=== PATIENT | female | born 1975 | race Caucasian/White ===

== ENCOUNTER 2016-05-01 15:05 | Observation (INO) | payer MEDICAID ==
[2016-05-01] MEDS ORDERED: Sodium Chloride 0.9% 10 ML Syringe FLUSH PRN (15:23)
[2016-05-01] MEDS: Sodium Chloride 0.9% 1,000 ML IV SCH ×2 (16:00→23:02)
--- NOTE | 2016-05-01 16:07 | CR ---
INDICATION: Fever. CHEST: PA and lateral views of the chest 05/01/2016 were compared with 2014 and 10/25/2014, revealing no significant interval change - no definite active disease. The heart is emphasized by relatively poor inspiration. Mediastinum and bony thorax were otherwise unremarkable. An active infiltrate or effusion was not seen. IMPRESSION: Essentially stable chest. No definite active disease. MTDD
--- NOTE | 2016-05-01 18:07 | PCM.HP ---
H&P History of Present Illness - General Date of Service: 05/01/16 Admit Problem/Dx: Admission Diagnosis/Problem Admission Diagnosis/Problem Weakness Source of Information: Patient History Limitations: Reports: No limitations - History of Present Illness Initial Comments - Free Text/Narative: This is a patient referred by Dr. King. She is a 40-year-old female patient with a history of MS. She has had two-week history of fevers off and on. She says it started with temperature over 102 but since then it has been high 90s. She's had diarrhea the last couple days and MS better. She denies nasal congestion, sore throat, cough, exposures. She does self catheter. She denies dysuria, pyuria, hematuria, cough. She's a decreased appetite and not eating well. Dr. King felt she should be admitted for observation. Generalized Pain Score (Numeric/FACES): 7 - Related Data Allergies/Adverse Reactions: Allergies Allergy/AdvReac Type Severity Reaction Status Date / Time diazepam Allergy Nausea Verified 05/01/16 17:48 gadopentetate dimeglumine Allergy Shortness Verified 05/01/16 17:48 [From Magnevist] of Breath lorazepam Allergy Numbness Verified 05/01/16 17:48 dye Allergy heart Uncoded 05/01/16 17:48 races, feel like cant breathe IV CONTRAST Allergy Chest Uncoded 05/01/16 17:48 Tightness MRI CONTRAST Allergy Chest Uncoded 05/01/16 17:48 Tightness peppers Allergy Hives Uncoded 05/01/16 17:48 Home Medications: Home Meds Acetaminophen [Pain Reliever] 500 mg PO Q4H PRN 05/21/13 [History] Divalproex Sodium [Depakote ER] 1,000 mg PO BEDTIME 05/21/13 [History] Acetaminophen with Codeine [Acetaminophen-Cod #3] 1 - 2 tab PO Q4H PRN 10/09/14 [History] Furosemide [Lasix] 40 mg PO DAILY 10/09/14 [History] rOPINIRole HCl [Requip] 1 mg PO BEDTIME 10/09/14 [History] Cephalexin [Keflex] 250 mg PO BEDTIME 11/25/14 [History] Eletriptan HBr [Relpax] 40 mg PO DAILY PRN 11/28/15 [History] FLUoxetine HCl [Fluoxetine HCl] 20 mg PO DAILY 11/28/15 [History] Levothyroxine Sodium [Levothyroxine Sodium] 88 mcg PO DAILY 11/28/15 [History] Mirtazapine [Remeron] 30 mg PO BEDTIME 11/28/15 [History] Sennosides/Docusate Sodium [Senna-Docusate Sodium Tablet] 2 tab PO BEDTIME 11/27 [History] Dextroamphetamine/Amphetamine [Adderall 20 mg Tablet] 20 mg PO BID 05/01/16 [ History] Gemfibrozil [Lopid] 600 mg PO BID 05/01/16 [History] Morphine Sulfate [Morphine Sulfate ER] 100 mg PO BID 05/01/16 [History] Propranolol [Inderal LA] 180 mg PO BEDTIME 05/01/16 [History] Psyllium [Metamucil] 2 tab PO BID 05/01/16 [History] methylPREDNISolone [Medrol] 4 mg PO DAILY 05/01/16 [History] Past Medical History Cardiovascular History: Reports: High cholesterol Respiratory History: Reports: Pneumonia, recurrent Gastrointestinal History: Reports: Cholelithiasis Genitourinary History: Reports: Other (see below) Other Genitourinary History: bladder botox for leakage [employer] History: Reports: Endometriosis, Other (see below) Other OB/BYN History: ovarian cysts Musculoskeletal History: Reports: Back pain, chronic, Fibromyalgia, Other (see below) Other Musculoskeletal History: multiple sclerosis, degenerative disk disease Neurological History: Reports: Migraines, MS, Vertigo Psychiatric History: Reports: Anxiety, Depression, PTSD, Other (see below) Other Psychiatric History: hyper awareness disorder Endocrine/Metabolic History: Reports: Hypothyroidism, Obesity/BMI 30+ Dermatologic History: Reports: Other (see below) Other Dermatologic History: pigment discoloeration l shoulder - Past Surgical History HEENT Surgical History: Reports: Tonsillectomy GI Surgical History: Reports: Appendectomy, Cholecystectomy, Colonoscopy, EGD Female Surgical History: Reports: Hysterectomy Musculoskeletal Surgical History: Reports: Carpal tunnel Social & Family History - Tobacco Use Smoking Status *Q: Current Every Day Smoker Years of Tobacco use: 20 Packs/Tins Daily: 0.2 Used Tobacco, but Quit: Yes Month Tobacco Last Used: June Second Hand Smoke Exposure: No - Caffeine Use Caffeine Use: Reports: Soda - Alcohol Use Days Per Week of Alcohol Use: 0 Number of Drinks Per Day: 1 Total Drinks Per Week: 0 - Recreational Drug Use Recreational Drug Use: No - Living Situation & Occupation Living situation: Reports: Occupation: disabled H&P Review of Systems - Review of Systems: Review Of Systems: See Below General: Reports: fever, chills, malaise, weakness HEENT: Reports: no symptoms Pulmonary: Reports: no symptoms Cardiovascular: Reports: no symptoms Gastrointestinal: Reports: Diarrhea, Nausea. Denies: Abdominal pain, Bloody stool Genitourinary: Reports: no symptoms Musculoskeletal: Reports: no symptoms Skin: Reports: no symptoms Psychiatric: Reports: no symptoms Neurological: Reports: no symptoms Hematologic/Lymphatic: Reports: no symptoms Immunologic: Reports: no symptoms Exam - Exam Exam: See Below - Vital Signs Vital Signs: Last Vital Signs Temp 98.0 F 05/01/16 15:05 Pulse 61 05/01/16 15:05 Resp 18 05/01/16 15:05 BP 119/68 05/01/16 15:05 Pulse Ox 95 05/01/16 15:05 Weight: 191 lb 14.4 oz - Patient Data Lab Results last 24 hrs: Laboratory Results - last 24 hr 05/01/16 05/01/16 Range/Units 16:00 16:00 WBC 13.0 H (4.5-12.0) X10-3/uL RBC 4.88 (3.23-5.20) x10(6)uL Hgb 12.5 (11.5-15.5) g/dL Hct 43.8 (30.0-51.3) % MCV 89.8 (80-96) fL MCH 25.5 L (27.7-33.6) pg MCHC 28.5 L (32.2-35.4) g/dL RDW 12.4 (11.5-15.5) % Plt Count 304 (125-369) X10(3)uL MPV 9.3 (7.4-10.4) fL Neut % (Auto) 63.6 (46-82) % Lymph % (Auto) 28.5 (13-37) % [place] % (Auto) 6.7 (4-12) % Eos % (Auto) 1 (1.0-5.0) % Baso % (Auto) 0 (0-2) % Neut # 8.2 (1.6-8.3) # Lymph # 3.7 (0.6-5.0) # [place] # 0.9 (0.0-1.3) # Eos # 0.1 (0.0-0.8) # Baso # 0.1 (0.0-0.2) # Sodium 139 (135-145) mmol/L Potassium 3.5 (3.5-5.3) mmol/L Chloride 101 D (100-110) mmol/L Carbon Dioxide 29 (23-29) mmol/L BUN 18 D (5-20) mg/dL Creatinine 0.8 (0.6-1.3) mg/dL Est Cr Clr Drug Dosing 82.33 mL/min Estimated GFR (MDRD) > 60 (>60) BUN/Creatinine Ratio 22.5 H (9-20) Glucose 89 (80-116) mg/dL Calcium 9.1 (8.6-10.2) mg/dL Total Bilirubin 0.8 (0.1-1.3) mg/dL AST 26 D (5-27) IU/L ALT 31 H D (14-26) IU/L Alkaline Phosphatase 73 (56-112) IU/L Total Protein 7.8 (6.0-8.0) g/dL Albumin 4.6 (3.5-5.2) g/dL Globulin 3.2 g/dL Albumin/Globulin Ratio 1.4 Result Diagrams: 05/01/16 16:00 05/01/16 16:00 *Q Meaningful Use (ADM) - VTE *Q VTE Criteria *Q: - Stroke *Q Stroke Criteria *Q: - AMI *Q AMI Criteria *Q: - Problem List (1) Fever SNOMED Code(s): 987803024 ICD Code: R50.9 - FEVER, UNSPECIFIED Status: Acute Current Visit: Yes (2) Dehydration SNOMED Code(s): 69369877 ICD Code: E86.0 - DEHYDRATION Status: Acute Priority: Medium Current Visit: No Onset Date: 04/27/14 Problem Details: IV fluids (3) Diarrhea SNOMED Code(s): 24110382 ICD Code: R19.7 - DIARRHEA, UNSPECIFIED Status: Acute Current Visit: No Problem List Initiated/Reviewed/Updated: Yes Orders Last 24hrs: Active Orders 24 hr Category Date Time Status Admission Status [Patient Status] [ADT] Routine ADT 05/01/16 15:00 Active Patient Status [ADT] Routine ADT 05/01/16 15:23 Active Height and Weight [RC] 06 Care 05/01/16 15:23 Active Intake and Output [RC] 06,14,22 Care 05/01/16 15:24 Active May Shower [RC] ASDIRECTED Care 05/01/16 15:23 Active Oxygen Therapy [RC] PRN Care 05/01/16 15:23 Active Up ad Marybel [RC] ASDIRECTED Care 05/01/16 15:23 Active Vital Signs [RC] Q4H Care 05/01/16 15:23 Active Regular Diet [DIET] Diet 05/01/16 Dinner Active CULTURE BLOOD [BC] Urgent Lab 05/01/16 16:00 Received CULTURE BLOOD [BC] Urgent Lab 05/01/16 16:05 Received INFLUENZA A+B AG SCREEN [RM] Routine Lab 05/01/16 17:23 Uncollected UA W/O MICROSCOPIC [URIN] Routine Lab 05/01/16 15:23 Uncollected Ondansetron [Zofran ODT] Med 05/01/16 15:23 Active 4 mg PO Q4H PRN Sodium Chloride 0.9% [Normal Saline] 1,000 ml Med 05/01/16 15:30 Active IV ASDIRECTED Sodium Chloride 0.9% [Saline Flush] Med 05/01/16 15:23 Active 10 ml FLUSH ASDIRECTED PRN Blood Culture x2 Reflex Set [OM.PC] Urgent Oth 05/01/16 15:23 Ordered Peripheral IV Insertion Adult [OM.PC] Routine Oth 05/01/16 15:23 Ordered Resuscitation Status Routine Resus Stat 05/01/16 15:23 Ordered Medication Orders Sodium Chloride (Normal Saline) 1,000 mls @ 150 mls/hr IV ASDIRECTED ECHO Last Admin: 05/01/16 16:00 Dose: 150 mls/hr Ondansetron HCl (Zofran Odt) 4 mg PO Q4H PRN PRN Reason: nausea, able to take PO Sodium Chloride (Saline Flush) 10 ml FLUSH ASDIRECTED PRN PRN Reason: Keep Vein Open Last Admin: 05/01/16 16:00 Dose: 10 ml Assessment/Plan Comment:: 1. Admit for observation. 2. Chest x-ray, influenza screen, UA, CBC, Chem-12, blood cultures. 3. IV fluids at a rate of 150 mL an hour of normal saline. 4. Up ad marybel. regular diet.
[2016-05-01] MEDS: Ondansetron 4 MG Tab.DIS PO PRN (18:52)
[2016-05-01] MEDS ORDERED: Acetaminophen 500 MG Tab PO PRN (19:38)
[2016-05-01] MEDS ORDERED: Acetaminophen/Codeine 300-30 MG Tab PO PRN (19:38)
[2016-05-01] MEDS ORDERED: ELETRIPTAN HBR 40 MG PO PRN (19:38)
[2016-05-01] MEDS ORDERED: rOPINIRole 1 MG Tab PO SCH (21:00)
[2016-05-01] MEDS ORDERED: Propranolol 60 MG Cap.ER PO SCH (21:00)
[2016-05-01] MEDS ORDERED: Cephalexin 250 MG Cap PO SCH (21:00)
[2016-05-01] MEDS ORDERED: Divalproex Sodium 500 MG Tab.ER PO SCH (21:00)
[2016-05-01] MEDS ORDERED: Mirtazapine 30 MG Tab PO SCH (21:00)
[2016-05-01] MEDS: Gemfibrozil 600 MG Tab PO SCH (21:55)
[2016-05-01] MEDS: MORPHINE 100 MG PO SCH (21:55)
[2016-05-01] MEDS: Psyllium 0.52 GM Cap PO SCH (21:56)
[2016-05-02] MEDS: Sodium Chloride 0.9% 1,000 ML IV SCH ×2 (05:45→10:23)
[2016-05-02] MEDS ORDERED: Levothyroxine 100 MCG Tab PO SCH (07:30)
[2016-05-02] MEDS ORDERED: Levothyroxine 88 MCG Tab PO SCH ×2 (07:37→09:15)
--- NOTE | 2016-05-02 08:36 | PCM.PN ---
- General Info Date of Service: 05/02/16 Admission Dx/Problem (Free Text): Patient states she feels a little nauseated after she is. She was having diarrhea but now has not had a BM for a few days. She has no abdominal pain, nasal congestion, cough. She states she feels warm and cold at times. No myalgias. She has not urinated today. - Patient Data Vitals - most recent: Last Vital Signs Temp 97.8 F 05/02/16 08:00 Pulse 62 05/02/16 08:00 Resp 16 05/02/16 08:00 BP 108/59 L 05/02/16 08:00 Pulse Ox 94 L 05/02/16 08:00 Weight - most recent: 193 lb I&O - last 24 hours: Intake & Output 05/01/16 05/02/16 05/02/16 22:59 06:59 14:59 Intake Total 1166 1191 Output Total 800 0 Balance 366 1191 Lab Results last 24 hrs: Laboratory Results - last 24 hr 05/01/16 05/01/16 05/01/16 Range/Units 16:00 16:00 18:00 WBC 13.0 H (4.5-12.0) X10-3/uL RBC 4.88 (3.23-5.20) x10(6)uL Hgb 12.5 (11.5-15.5) g/dL Hct 43.8 (30.0-51.3) % MCV 89.8 (80-96) fL MCH 25.5 L (27.7-33.6) pg MCHC 28.5 L (32.2-35.4) g/dL RDW 12.4 (11.5-15.5) % Plt Count 304 (125-369) X10(3)uL MPV 9.3 (7.4-10.4) fL Neut % (Auto) 63.6 (46-82) % Lymph % (Auto) 28.5 (13-37) % [place] % (Auto) 6.7 (4-12) % Eos % (Auto) 1 (1.0-5.0) % Baso % (Auto) 0 (0-2) % Neut # 8.2 (1.6-8.3) # Lymph # 3.7 (0.6-5.0) # [place] # 0.9 (0.0-1.3) # Eos # 0.1 (0.0-0.8) # Baso # 0.1 (0.0-0.2) # Sodium 139 (135-145) mmol/L Potassium 3.5 (3.5-5.3) mmol/L Chloride 101 D (100-110) mmol/L Carbon Dioxide 29 (23-29) mmol/L BUN 18 D (5-20) mg/dL Creatinine 0.8 (0.6-1.3) mg/dL Est Cr Clr Drug Dosing 82.33 mL/min Estimated GFR (MDRD) > 60 (>60) BUN/Creatinine Ratio 22.5 H (9-20) Glucose 89 (80-116) mg/dL Calcium 9.1 (8.6-10.2) mg/dL Total Bilirubin 0.8 (0.1-1.3) mg/dL AST 26 D (5-27) IU/L ALT 31 H D (14-26) IU/L Alkaline Phosphatase 73 (56-112) IU/L Total Protein 7.8 (6.0-8.0) g/dL Albumin 4.6 (3.5-5.2) g/dL Globulin 3.2 g/dL Albumin/Globulin Ratio 1.4 Urine Color Yellow (YELLOW) Urine Appearance Clear (CLEAR) Urine pH 5.0 (5.0-6.5) Ur Specific [place] 1.015 (1.010-1.025) Urine Protein Negative (NEGATIVE) mg/dL Urine Glucose (UA) Normal (NEGATIVE) mg/dL Urine Ketones Negative (NEGATIVE) mg/dL Urine Occult Blood Negative (NEGATIVE) Urine Nitrite Negative (NEGATIVE) Urine Bilirubin Negative (NEGATIVE) Urine Urobilinogen Normal (NEGATIVE) mg/dL Ur Leukocyte Esterase Negative (NEGATIVE) Patric Results last 24 hrs: Microbiology 05/01/16 18:00 Influenza Type A Antigen Screen - Final Nasopharyngeal Swab - Nare, Right NEGATIVE INFLUENZA A VIRUS AG Influenza Type B Antigen Screen - Final NEGATIVE INFLUENZA B VIRUS AG Med Orders - Current: Current Medications Acetaminophen (Tylenol Extra Strength) 500 mg PO Q4H PRN PRN Reason: Pain Acetaminophen/Codeine Phosphate (Tylenol With Codeine No.3 300mg/30mg) 1 - 2 tab PO Q4H PRN PRN Reason: BACK PAIN Last Admin: 05/02/16 07:55 Dose: 2 tab Cephalexin (Keflex) 250 mg PO BEDTIME [facility] Last Admin: 05/01/16 21:55 Dose: 250 mg Divalproex Sodium (Depakote Er) 1,000 mg PO BEDTIME [facility] Last Admin: 05/01/16 21:56 Dose: 1,000 mg Fluoxetine HCl (Prozac) 20 mg PO DAILY [facility] Gemfibrozil (Lopid) 600 mg PO BID [facility] Last Admin: 05/01/16 21:55 Dose: 600 mg Sodium Chloride (Normal Saline) 1,000 mls @ 150 mls/hr IV ASDIRECTED [facility] Last Admin: 05/02/16 05:45 Dose: 150 mls/hr Levothyroxine Sodium (Synthroid) 88 mcg PO ACBREAKFAST [facility] Methylprednisolone (Medrol) 4 mg PO DAILY [facility] PRN Reason: Protocol Stop: 05/02/16 10:00 Morphine Sulfate (Ms Contin) 100 mg PO BID [facility] Last Admin: 05/01/16 21:55 Dose: 100 mg Non-Formulary Medication (Dextroamphetamine/Amphetamine [Adderall 20 Mg Tablet] ) 20 mg PO BID [facility] Last Admin: 05/01/16 22:09 Dose: Not Given Non-Formulary Medication (Eletriptan Hbr [Relpax]) 40 mg PO DAILY PRN PRN Reason: Headache Ondansetron HCl (Zofran Odt) 4 mg PO Q4H PRN PRN Reason: nausea, able to take PO Last Admin: 05/01/16 18:52 Dose: 4 mg Propranolol HCl (Inderal La) 180 mg PO BEDTIME [facility] Last Admin: 05/01/16 21:55 Dose: 180 mg Psyllium Hydrophilic Mucilloid (Metamucil) 1.04 gm PO BID [facility] Last Admin: 05/01/16 21:56 Dose: 1.04 gm Ropinirole HCl (Requip) 1 mg PO BEDTIME [facility] Last Admin: 05/01/16 21:55 Dose: 1 mg Senna/Docusate Sodium (Senna Plus) 2 tab PO BEDTIME [facility] Last Admin: 05/01/16 21:55 Dose: 2 tab Sodium Chloride (Saline Flush) 10 ml FLUSH ASDIRECTED PRN PRN Reason: Keep Vein Open Last Admin: 05/01/16 16:00 Dose: 10 ml Discontinued Medications Levothyroxine Sodium (Synthroid) 88 mcg PO ACBREAKFAST ECHO Mirtazapine (Remeron) 30 mg PO BEDTIME ECHO - Exam General: alert, oriented, cooperative Neck: supple Lungs: Clear to auscultation, Normal respiratory effort. No: Crackles, Rales, Rhonchi Cardiovascular: regular rate, regular rhythm. No: no murmurs Extremities: no edema - Problem List & Annotations (1) Dehydration SNOMED Code(s): 30908956 Code(s): E86.0 - DEHYDRATION Status: Acute Priority: Medium Current Visit: No Onset Date: 04/27/14 Annotation/Comment:: IV fluids (2) Gastroenteritis SNOMED Code(s): 36802853 Code(s): K52.9 - NONINFECTIVE GASTROENTERITIS AND COLITIS, UNSPECIFIED Status: Acute Current Visit: No - Problem List Review Problem List Initiated/Reviewed/Updated: Yes - My Orders Last 24 Hours: My Active Orders 05/01/16 15:00 Admission Status [Patient Status] [ADT] Routine 05/01/16 15:23 Patient Status [ADT] Routine Height and Weight [RC] 06 July Shower [RC] ASDIRECTED Oxygen Therapy [RC] PRN Up ad Marybel [RC] ASDIRECTED Vital Signs [RC] Q4H Ondansetron [Zofran ODT] 4 mg PO Q4H PRN Sodium Chloride 0.9% [Saline Flush] 10 ml FLUSH ASDIRECTED PRN Blood Culture x2 Reflex Set [OM.PC] Urgent Peripheral IV Insertion Adult [OM.PC] Routine Resuscitation Status Routine 05/01/16 15:24 Intake and Output [RC] 06,14,22 05/01/16 15:30 Sodium Chloride 0.9% [Normal Saline] 1,000 ml IV ASDIRECTED 05/01/16 16:00 CULTURE BLOOD [BC] Urgent 05/01/16 16:05 CULTURE BLOOD [BC] Urgent 05/01/16 19:38 Acetaminophen [Tylenol Extra Strength] 500 mg PO Q4H PRN Acetaminophen/Codeine [Tylenol with Codeine No.3 300MG/30MG] 1 - 2 tab PO Q4H PRN Eletriptan HBr [Relpax] 40 mg PO DAILY PRN 05/01/16 21:00 Cephalexin [Keflex] 250 mg PO BEDTIME Dextroamphetamine/Amphetamine [Adderall 20 mg Tablet] 20 mg PO BID Divalproex Sodium [Depakote ER] 1,000 mg PO BEDTIME Docusate Sodium/Sennosides [Senna Plus] 2 tab PO BEDTIME Gemfibrozil [Lopid] 600 mg PO BID Morphine [MS Contin] 100 mg PO BID Propranolol [Inderal LA] 180 mg PO BEDTIME Psyllium [Metamucil] 1.04 gm PO BID rOPINIRole [Requip] 1 mg PO BEDTIME 05/01/16 Dinner Regular Diet [DIET] 05/02/16 07:16 CBC WITH AUTO DIFF [HEME] Routine 05/02/16 07:37 Levothyroxine [Synthroid] 88 mcg PO ACBREAKFAST 05/02/16 09:00 FLUoxetine [PROzac] 20 mg PO DAILY methylPREDNISolone [Medrol] 4 mg PO DAILY - Plan Plan:: 1. gave a bolus of fluids stay. 2. Patient had a C-reactive protein, sedimentation rate and blood cultures in the clinic recently that were negative. 3. Influenza, UA, chem 10 all negative. White count is slightly elevated. 4. Repeat CBC this morning. 5. Bolus of 500 mL normal saline and then continue at 150 mL an hour.
[2016-05-02] MEDS ORDERED: FLUoxetine 20 MG Cap PO SCH (09:00)
[2016-05-02] MEDS ORDERED: methylPREDNISolone 4 MG Tab 21 Tab/Dosepak PO SCH (09:00)
[2016-05-02] MEDS: Gemfibrozil 600 MG Tab PO SCH (09:14)
[2016-05-02] MEDS: Psyllium 0.52 GM Cap PO SCH (09:14)
[2016-05-02] MEDS: MORPHINE 100 MG PO SCH (09:19)
[2016-05-02] MEDS: Ondansetron 4 MG Tab.DIS PO PRN (09:20)
[2016-05-02 12:03] VITALS: BP 102/49
--- NOTE | 2016-05-02 13:54 | PCM.DCSUM1 ---
Discharge Summary - Hospital Course Free Text/Narrative:: Hospital course-patient was admitted. Initial CBC showed a white count of over 13. Chem-12, UA, influenza, negative. Blood cultures pending. Patient was hydrated overnight with normal saline. The next morning patient states she felt warm and cold. Her temperature remained afebrile. Give her a bolus of fluids in the morning again if she had not urinated. After that her nausea that she been having disappeared. She still hasn't had a bowel movement since yesterday. Brief History: This is a patient referred by Dr. King. She is a 40-year- old female patient with a history of MS. She has had two-week history of fevers off and on. She says it started with temperature over 102 but since then it has been high 90s. She's had lots of diarrhea the last couple days and MS better. She denies nasal congestion, sore throat, cough, exposures. She does self catheter. She denies dysuria, pyuria, hematuria, cough. She's a decreased appetite and not eating well. Dr. King felt she should be admitted for observation. - Discharge Data Discharge Date: 05/02/16 Discharge Disposition: Home, Self-Care 01 Condition: Good - Discharge Diagnosis/Problem(s) (1) Dehydration SNOMED Code(s): 85325770 ICD Code: E86.0 - DEHYDRATION Status: Acute Priority: Medium Current Visit: Yes Onset Date: 04/27/14 Problem Details: IV fluids (2) Gastroenteritis SNOMED Code(s): 10650687 ICD Code: K52.9 - NONINFECTIVE GASTROENTERITIS AND COLITIS, UNSPECIFIED Status: Acute Current Visit: Yes - Patient Summary/Data Operative Procedure(s) Performed: c scope with bx - Patient Instructions Diet: Regular Diet as Tolerated Activity: As Tolerated Driving: May Drive Today Showering/Bathing: May Shower Other/Special Instructions: 1. Recheck with Dr. King 7-10 days. - Discharge Plan Home Medications: Home Meds Acetaminophen [Pain Reliever] 500 mg PO Q4H PRN 05/21/13 [History] Divalproex Sodium [Depakote ER] 1,000 mg PO BEDTIME 05/21/13 [History] Acetaminophen with Codeine [Acetaminophen-Cod #3] 1 - 2 tab PO Q4H PRN 10/09/14 [History] rOPINIRole HCl [Requip] 1 mg PO BEDTIME 10/09/14 [History] Cephalexin [Keflex] 250 mg PO BEDTIME 11/25/14 [History] Eletriptan HBr [Relpax] 40 mg PO DAILY PRN 11/28/15 [History] FLUoxetine HCl [Fluoxetine HCl] 20 mg PO DAILY 11/28/15 [History] Levothyroxine Sodium 88 mcg PO DAILY 11/28/15 [History] Mirtazapine [Remeron] 30 mg PO BEDTIME 11/28/15 [History] Sennosides/Docusate Sodium [Senna-Docusate Sodium Tablet] 2 tab PO BEDTIME 11/27 [History] Dextroamphetamine/Amphetamine [Adderall 20 mg Tablet] 20 mg PO BID 05/01/16 [ History] Gemfibrozil [Lopid] 600 mg PO BID 05/01/16 [History] Morphine Sulfate [Morphine Sulfate ER] 100 mg PO BID 05/01/16 [History] Propranolol [Inderal LA] 180 mg PO BEDTIME 05/01/16 [History] Psyllium [Metamucil] 2 tab PO BID 05/01/16 [History] methylPREDNISolone [Medrol] 4 mg PO DAILY 05/01/16 [History] - Discharge Summary/Plan Comment DC Time >30 min.: No - Patient Data Vitals - Most Recent: Last Vital Signs Temp 98.1 F 05/02/16 12:00 Pulse 65 05/02/16 12:00 Resp 16 05/02/16 12:00 BP 102/49 L 05/02/16 12:00 Pulse Ox 95 05/02/16 12:00 Weight - Most Recent: 193 lb I&O - Last 24 hours: Intake & Output 05/01/16 05/02/16 05/02/16 22:59 06:59 14:59 Intake Total 1166 1191 360 Output Total 800 0 300 Balance 366 1191 60 Lab Results - Last 24 hrs: Laboratory Results - last 24 hr 05/01/16 05/01/16 05/01/16 Range/Units 16:00 16:00 18:00 WBC 13.0 H (4.5-12.0) X10-3/uL RBC 4.88 (3.23-5.20) x10(6)uL Hgb 12.5 (11.5-15.5) g/dL Hct 43.8 (30.0-51.3) % MCV 89.8 (80-96) fL MCH 25.5 L (27.7-33.6) pg MCHC 28.5 L (32.2-35.4) g/dL RDW 12.4 (11.5-15.5) % Plt Count 304 (125-369) X10(3)uL MPV 9.3 (7.4-10.4) fL Neut % (Auto) 63.6 (46-82) % Lymph % (Auto) 28.5 (13-37) % [place] % (Auto) 6.7 (4-12) % Eos % (Auto) 1 (1.0-5.0) % Baso % (Auto) 0 (0-2) % Neut # 8.2 (1.6-8.3) # Lymph # 3.7 (0.6-5.0) # [place] # 0.9 (0.0-1.3) # Eos # 0.1 (0.0-0.8) # Baso # 0.1 (0.0-0.2) # Sodium 139 (135-145) mmol/L Potassium 3.5 (3.5-5.3) mmol/L Chloride 101 D (100-110) mmol/L Carbon Dioxide 29 (23-29) mmol/L BUN 18 D (5-20) mg/dL Creatinine 0.8 (0.6-1.3) mg/dL Est Cr Clr Drug Dosing 82.33 mL/min Estimated GFR (MDRD) > 60 (>60) BUN/Creatinine Ratio 22.5 H (9-20) Glucose 89 (80-116) mg/dL Calcium 9.1 (8.6-10.2) mg/dL Total Bilirubin 0.8 (0.1-1.3) mg/dL AST 26 D (5-27) IU/L ALT 31 H D (14-26) IU/L Alkaline Phosphatase 73 (56-112) IU/L Total Protein 7.8 (6.0-8.0) g/dL Albumin 4.6 (3.5-5.2) g/dL Globulin 3.2 g/dL Albumin/Globulin Ratio 1.4 Urine Color Yellow (YELLOW) Urine Appearance Clear (CLEAR) Urine pH 5.0 (5.0-6.5) Ur Specific [place] 1.015 (1.010-1.025) Urine Protein Negative (NEGATIVE) mg/dL Urine Glucose (UA) Normal (NEGATIVE) mg/dL Urine Ketones Negative (NEGATIVE) mg/dL Urine Occult Blood Negative (NEGATIVE) Urine Nitrite Negative (NEGATIVE) Urine Bilirubin Negative (NEGATIVE) Urine Urobilinogen Normal (NEGATIVE) mg/dL Ur Leukocyte Esterase Negative (NEGATIVE) 05/02/16 Range/Units 08:45 WBC 9.7 (4.5-12.0) X10-3/uL RBC 3.90 (3.23-5.20) x10(6)uL Hgb 12.0 (11.5-15.5) g/dL Hct 35.3 (30.0-51.3) % MCV 90.6 (80-96) fL MCH 30.8 (27.7-33.6) pg MCHC 34.0 (32.2-35.4) g/dL RDW 12.5 (11.5-15.5) % Plt Count 234 (125-369) X10(3)uL MPV 8.6 (7.4-10.4) fL Neut % (Auto) 50.3 (46-82) % Lymph % (Auto) 41.2 H (13-37) % [place] % (Auto) 5.8 (4-12) % Eos % (Auto) 2 (1.0-5.0) % Baso % (Auto) 1 (0-2) % Neut # 4.8 (1.6-8.3) # Lymph # 4.0 (0.6-5.0) # [place] # 0.6 (0.0-1.3) # Eos # 0.2 (0.0-0.8) # Baso # 0.1 (0.0-0.2) # Sodium (135-145) mmol/L Potassium (3.5-5.3) mmol/L Chloride (100-110) mmol/L Carbon Dioxide (23-29) mmol/L BUN (5-20) mg/dL Creatinine (0.6-1.3) mg/dL Est Cr Clr Drug Dosing mL/min Estimated GFR (MDRD) (>60) BUN/Creatinine Ratio (9-20) Glucose (80-116) mg/dL Calcium (8.6-10.2) mg/dL Total Bilirubin (0.1-1.3) mg/dL AST (5-27) IU/L ALT (14-26) IU/L Alkaline Phosphatase (56-112) IU/L Total Protein (6.0-8.0) g/dL Albumin (3.5-5.2) g/dL Globulin g/dL Albumin/Globulin Ratio Urine Color (YELLOW) Urine Appearance (CLEAR) Urine pH (5.0-6.5) Ur Specific [place] (1.010-1.025) Urine Protein (NEGATIVE) mg/dL Urine Glucose (UA) (NEGATIVE) mg/dL Urine Ketones (NEGATIVE) mg/dL Urine Occult Blood (NEGATIVE) Urine Nitrite (NEGATIVE) Urine Bilirubin (NEGATIVE) Urine Urobilinogen (NEGATIVE) mg/dL Ur Leukocyte Esterase (NEGATIVE) SHORTY Results - Last 24 hrs: Microbiology 05/01/16 18:00 Influenza Type A Antigen Screen - Final Nasopharyngeal Swab - Nare, Right NEGATIVE INFLUENZA A VIRUS AG Influenza Type B Antigen Screen - Final NEGATIVE INFLUENZA B VIRUS AG Med Orders - Current: Current Medications Acetaminophen (Tylenol Extra Strength) 500 mg PO Q4H PRN PRN Reason: Pain Acetaminophen/Codeine Phosphate (Tylenol With Codeine No.3 300mg/30mg) 1 - 2 tab PO Q4H PRN PRN Reason: BACK PAIN Last Admin: 05/02/16 07:55 Dose: 2 tab Cephalexin (Keflex) 250 mg PO BEDTIME [facility] Last Admin: 05/01/16 21:55 Dose: 250 mg Divalproex Sodium (Depakote Er) 1,000 mg PO BEDTIME [facility] Last Admin: 05/01/16 21:56 Dose: 1,000 mg Fluoxetine HCl (Prozac) 20 mg PO DAILY [facility] Last Admin: 05/02/16 09:14 Dose: 20 mg Gemfibrozil (Lopid) 600 mg PO BID [facility] Last Admin: 05/02/16 09:14 Dose: 600 mg Sodium Chloride (Normal Saline) 1,000 mls @ 150 mls/hr IV ASDIRECTED [facility] Last Admin: 05/02/16 10:23 Dose: 150 mls/hr Levothyroxine Sodium (Synthroid) 88 mcg PO ACBREAKFAST [facility] Last Admin: 05/02/16 09:15 Dose: 88 mcg Morphine Sulfate (Ms Contin) 100 mg PO BID [facility] Last Admin: 05/02/16 09:19 Dose: 100 mg Non-Formulary Medication (Dextroamphetamine/Amphetamine [Adderall 20 Mg Tablet] ) 20 mg PO BID [facility] Last Admin: 05/02/16 09:32 Dose: Not Given Non-Formulary Medication (Eletriptan Hbr [Relpax]) 40 mg PO DAILY PRN PRN Reason: Headache Ondansetron HCl (Zofran Odt) 4 mg PO Q4H PRN PRN Reason: nausea, able to take PO Last Admin: 05/02/16 09:20 Dose: 4 mg Propranolol HCl (Inderal La) 180 mg PO BEDTIME [facility] Last Admin: 05/01/16 21:55 Dose: 180 mg Psyllium Hydrophilic Mucilloid (Metamucil) 1.04 gm PO BID [facility] Last Admin: 05/02/16 09:14 Dose: 1.04 gm Ropinirole HCl (Requip) 1 mg PO BEDTIME [facility] Last Admin: 05/01/16 21:55 Dose: 1 mg Senna/Docusate Sodium (Senna Plus) 2 tab PO BEDTIME [facility] Last Admin: 05/01/16 21:55 Dose: 2 tab Sodium Chloride (Saline Flush) 10 ml FLUSH ASDIRECTED PRN PRN Reason: Keep Vein Open Last Admin: 05/01/16 16:00 Dose: 10 ml Discontinued Medications Levothyroxine Sodium (Synthroid) 88 mcg PO ACBREAKFAST [facility] Last Admin: 05/02/16 09:05 Dose: Not Given Methylprednisolone (Medrol) 4 mg PO DAILY [facility] PRN Reason: Protocol Stop: 05/02/16 10:00 Last Admin: 05/02/16 09:33 Dose: Not Given Mirtazapine (Remeron) 30 mg PO BEDTIME [facility] *Q Meaningful Use (DIS) - VTE *Q VTE Criteria *Q: - Stroke *Q Stroke Criteria *Q: - AMI *Q AMI Criteria *Q:
== END 2016-05-02 14:35 | disposition home or self-care (01) ==
LOC: FB.MS 15:05
PROVIDERS: ADMIT Family Medicine; ATTEND Family Medicine
DX: E86.0 Dehydration (principal); K52.9 Noninfective gastroenteritis and colitis, unspecified; F41.8 Other specified anxiety disorders; E03.9 Hypothyroidism, unspecified; E66.9 Obesity, unspecified; Z68.30 Body mass index [BMI] 30.0-30.9, adult; Z90.49 Acquired absence of other specified parts of digestive tract; Z90.710 Acquired absence of both cervix and uterus; Z98.890 Other specified postprocedural states; F17.210 Nicotine dependence, cigarettes, uncomplicated; Z88.8 Allergy status to other drugs, medicaments and biological substances; Z91.041 Radiographic dye allergy status; Z91.018 Allergy to other foods; Z79.899 Other long term (current) drug therapy
CPT/HCPCS: 36415; 71020; 80053; 81003; 85025; 87040; 87804; 96360; 96361; A9270; G0378; G0379; J7040; J7050

== ENCOUNTER 2017-02-15 13:30 | Observation (INO) | payer MEDICARE, MEDICAID ==
[2017-02-15] MEDS ORDERED: Sodium Chloride 0.9% 1,000 ML IV SCH ×2 (13:45→19:00)
[2017-02-15] MEDS ORDERED: Ondansetron 4 MG/2 ML SDV IV PRN (15:01)
[2017-02-15] MEDS ORDERED: Ondansetron 4 MG Tab.DIS PO PRN (15:06)
[2017-02-15] MEDS ORDERED: Acetaminophen 500 MG Tab PO PRN (15:06)
[2017-02-15] MEDS ORDERED: SUMAtriptan 50 MG Tab PO PRN (16:45)
[2017-02-15] MEDS ORDERED: Morphine 2 MG/ML Syringe IVPUSH PRN (18:24)
[2017-02-15] MEDS: DICYCLOMINE 10 MG PO SCH (18:40)
[2017-02-15] MEDS: GEMFIBROZIL 600 MG PO SCH (18:41)
[2017-02-15] MEDS: LUBIPROSTONE PO SCH (18:41)
[2017-02-15] MEDS: Temazepam 15 MG Cap PO SCH (20:04)
[2017-02-15] MEDS ORDERED: MODAFINIL 100 MG PO SCH (21:00)
[2017-02-15] MEDS: DIVALPROEX SODIUM 500 MG PO SCH (21:05)
[2017-02-15] MEDS: PROPRANOLOL 60 MG PO SCH (21:05)
[2017-02-15] MEDS: DIPHENHYDRAMINE 25 MG PO SCH (21:05)
[2017-02-15] MEDS: Morphine 60 MG Tab.ER PO SCH (21:06)
[2017-02-15] MEDS: CEPHALEXIN 250 MG PO SCH (21:06)
[2017-02-15] MEDS: ROPINIROLE 1 MG PO SCH (21:06)
[2017-02-15] MEDS: MIRTAZAPINE 30 MG PO SCH (21:06)
[2017-02-15] MEDS: Ketorolac 30 MG/ML SDV IVPUSH PRN (23:19)
[2017-02-16] MEDS: Sodium Chloride 0.9% 1,000 ML IV SCH ×4 (00:45→21:02)
[2017-02-16] MEDS: Acetaminophen/Codeine 300-30 MG Tab PO PRN ×2 (01:24→10:55)
[2017-02-16] MEDS: Ketorolac 30 MG/ML SDV IVPUSH PRN (05:31)
[2017-02-16] MEDS: LEVOTHYROXINE 88 MCG PO SCH (05:35)
[2017-02-16] MEDS: DEXTROAMPHETAMINE PO SCH (05:36)
[2017-02-16] MEDS: AMPHETAMINE PO SCH (05:36)
[2017-02-16] MEDS: [UNRECOGNIZED DRUG - OTHER] PO SCH (05:36)
[2017-02-16] MEDS: GEMFIBROZIL 600 MG PO SCH ×2 (07:32→17:03)
[2017-02-16] MEDS: DICYCLOMINE 10 MG PO SCH ×3 (07:32→17:02)
[2017-02-16] MEDS: LUBIPROSTONE PO SCH ×2 (07:33→17:04)
[2017-02-16] MEDS: Morphine 60 MG Tab.ER PO SCH ×2 (09:12→21:40)
[2017-02-16] MEDS: DIPHENHYDRAMINE 25 MG PO SCH ×2 (09:12→20:54)
[2017-02-16] MEDS: SOLIFENACIN 5 MG PO SCH (09:13)
[2017-02-16] MEDS: FLUOXETINE 20 MG PO SCH (09:13)
--- NOTE | 2017-02-16 11:48 | PN ---
DATE SEEN: 02/16/2017 SUBJECTIVE: Marianela Chaudhary is a 41-year-old female admitted with acute complicated gastroenteritis. Nausea is resolving. Did have 1 diarrheal stool today. Cramps come and go severe in nature. Toradol little benefit. Spoke to analgesics on board which include MS Contin and p.r.n. Tylenol. LABORATORY DATA: None today. CBC and electrolytes on 02/15 satisfactory. Urinalysis unremarkable. OBJECTIVE: VITAL SIGNS: Stable. 37.0, 55 is the pulse, 129/72, 15 and 90. GENERAL: Appears comfortable. NECK: Benign. Thyroid small. CHEST: Clear in all lung mckenna. No adventitious sounds. HEART: Regular without ectopy or murmur. ABDOMEN: Diffusely tender. Complicated gastroenteritis. PLAN: Appears to be turning the corner. We will use short-term hydromorphone, complementary care and well being. Continue IV fluids, pain control was addressed. Likely discharge home tomorrow. /[id number] ERICK/KEVIN
[2017-02-16] MEDS ORDERED: Loperamide 2 MG Tab PO PRN (11:57)
[2017-02-16] MEDS: HYDROmorphone 2 MG/ML SDV IVPUSH PRN ×2 (12:37→17:08)
[2017-02-16] MEDS ORDERED: Loperamide 2 MG Cap PO PRN (13:07)
[2017-02-16] MEDS: Metoclopramide 10 MG/2 ML SDV IV SCH ×2 (13:39→21:01)
[2017-02-16] MEDS: DIVALPROEX SODIUM 500 MG PO SCH (20:53)
[2017-02-16] MEDS: PROPRANOLOL 60 MG PO SCH (20:53)
[2017-02-16] MEDS: CEPHALEXIN 250 MG PO SCH (20:54)
[2017-02-16] MEDS: MIRTAZAPINE 30 MG PO SCH (20:54)
[2017-02-16] MEDS: ROPINIROLE 1 MG PO SCH (20:55)
[2017-02-16] MEDS: Temazepam 15 MG Cap PO SCH (21:00)
[2017-02-16] MEDS: Morphine 30 MG Tab.ER PO SCH (21:44)
[2017-02-17] MEDS: HYDROmorphone 2 MG/ML SDV IVPUSH PRN (01:57)
[2017-02-17] MEDS: Sodium Chloride 0.9% 1,000 ML IV SCH (03:46)
[2017-02-17] MEDS: LEVOTHYROXINE 88 MCG PO SCH (06:12)
[2017-02-17] MEDS: AMPHETAMINE PO SCH (06:13)
[2017-02-17] MEDS: [UNRECOGNIZED DRUG - OTHER] PO SCH (06:13)
[2017-02-17] MEDS: DEXTROAMPHETAMINE PO SCH (06:13)
[2017-02-17] MEDS: DICYCLOMINE 10 MG PO SCH ×2 (06:33→11:33)
[2017-02-17] MEDS: GEMFIBROZIL 600 MG PO SCH (06:33)
[2017-02-17] MEDS: LUBIPROSTONE PO SCH (08:29)
[2017-02-17] MEDS: Morphine 30 MG Tab.ER PO SCH (08:29)
[2017-02-17] MEDS: FLUOXETINE 20 MG PO SCH (08:31)
[2017-02-17] MEDS: DIPHENHYDRAMINE 25 MG PO SCH (08:31)
[2017-02-17] MEDS: SOLIFENACIN 5 MG PO SCH (08:31)
[2017-02-17] MEDS: Metoclopramide 10 MG/2 ML SDV IV SCH (08:32)
[2017-02-17 11:44] VITALS: BP 145/79
--- NOTE | 2017-02-18 03:16 | DISCH ---
DISCHARGE DATE: 02/17/2017 HOSPITAL COURSE: Marianela Chaudhary is a 41-year-old female from [place], [place] admitted with a complicated gastritis, complicated vomiting and diarrhea, and 4-pound weight loss. On admission, laboratory studies were stable. CBC was unremarkable. White count 6700, hemoglobin 12.6. Electrolytes were satisfactory. Liver function and kidney function fine. Urinalysis was clear. During her hospital stay, she received IV fluids, antiemetics, aggressive fluids, and hydration. Nothing surgical was done. No radiographic studies were required. On the morning of 02/17, feeling better. Bowels have been fine. Stooling is up, comfortable in that regard. DISCHARGE MEDICATIONS: Please see med recon list. Appointment on a p.r.n. basis. SURGICAL PROCEDURES: None. CONSULTATION: None. /[id number] ERICK/KEVIN
--- NOTE | 2017-02-28 12:50 | PCM.HP ---
H&P History of Present Illness - General Date of Service: 02/15/17 Admit Problem/Dx: Admission Diagnosis/Problem Admission Diagnosis/Problem Gastroenteritis Source of Information: Patient History Limitations: Reports: No Limitations - History of Present Illness Initial Comments - Free Text/Narative: 41-year-old female patient with multiple medical problems comes in with abdominal pain, vomiting and low-grade fevers. She was seen by Dr. King sent over. She is urinating somewhat but has not been able to keep much down. She denies dysuria, pyuria, hematuria. Has a little diarrhea but no constipation or blood in her stool. No exposure to any infectious. She denies recent antibiotic use or travel. Abdomen Pain Score (Numeric/FACES): 7 Headache Pain Score (Numeric/FACES): 7 Generalized Pain Score (Numeric/FACES): 5 - Related Data Allergies/Adverse Reactions: Allergies Allergy/AdvReac Type Severity Reaction Status Date / Time diazepam Allergy Nausea Verified 05/01/16 17:48 gadopentetate dimeglumine Allergy Shortness Verified 05/01/16 17:48 [From Magnevist] of Breath lorazepam Allergy Numbness Verified 05/01/16 17:48 dye Allergy heart Uncoded 05/01/16 17:48 races, feel like cant breathe IV CONTRAST Allergy Chest Uncoded 05/01/16 17:48 Tightness MRI CONTRAST Allergy Chest Uncoded 05/01/16 17:48 Tightness peppers Allergy Hives Uncoded 05/01/16 17:48 Home Medications: Home Meds Acetaminophen [Pain Reliever] 500 mg PO Q4H PRN 05/21/13 [History] Divalproex Sodium [Depakote ER] 1,000 mg PO BEDTIME 05/21/13 [History] Acetaminophen with Codeine [Acetaminophen-Cod #3] 1 - 2 tab PO Q4H PRN 10/09/14 [History] rOPINIRole HCl [Requip] 1 mg PO BEDTIME 10/09/14 [History] Cephalexin [Keflex] 250 mg PO BEDTIME 11/25/14 [History] Eletriptan HBr [Relpax] 40 mg PO DAILY PRN 11/28/15 [History] FLUoxetine HCl [Fluoxetine HCl] 20 mg PO DAILY 11/28/15 [History] Levothyroxine Sodium 88 mcg PO DAILY 11/28/15 [History] Mirtazapine [Remeron] 30 mg PO BEDTIME 11/28/15 [History] Dextroamphetamine/Amphetamine [Adderall 20 mg Tablet] 20 mg PO DAILY@0630 [History] Gemfibrozil [Lopid] 600 mg PO BIDAC 05/01/16 [History] Propranolol [Inderal LA] 180 mg PO BEDTIME 05/01/16 [History] Dicyclomine [Bentyl] 10 mg PO TIDAC 02/15/17 [History] Furosemide [Lasix] 40 mg PO DAILY 02/15/17 [History] Lubiprostone [Amitiza] 8 mg PO BIDMEALS 02/15/17 [History] Modafinil [Provigil] 100 mg PO BID 02/15/17 [History] Morphine Sulfate [Morphine Sulfate ER] 60 mg PO BID 02/15/17 [History] Ondansetron [Zofran] 4 mg PO QID PRN 02/15/17 [History] SUMAtriptan 100 mg PO ASDIRECTED PRN 02/15/17 [History] Solifenacin [Vesicare] 5 mg PO DAILY 02/15/17 [History] Temazepam 15 mg PO BEDTIME 02/15/17 [History] diphenhydrAMINE [Benadryl] 25 mg PO ASDIRECTED 02/15/17 [History] Metoclopramide HCl [Reglan] 10 mg PO TID #30 tablet 02/17/17 [Rx] Temazepam [Restoril] 15 mg PO BEDTIME cap 02/17/17 [Rx] Past Medical History HEENT History: Reports: Impaired Vision Cardiovascular History: Reports: High Cholesterol Respiratory History: Reports: Pneumonia, Recurrent Gastrointestinal History: Reports: Cholelithiasis Genitourinary History: Reports: Other (See Below) Other Genitourinary History: bladder botox for leakage [employer] History: Reports: Endometriosis, , Other (See Below) Other OB/BYN History: hysterectomy Musculoskeletal History: Reports: Back Pain, Chronic, Fibromyalgia, Other (See Below) Other Musculoskeletal History: multiple sclerosis, degenerative disk disease Neurological History: Reports: Migraines, MS, Vertigo Psychiatric History: Reports: Anxiety, Depression, PTSD, Other (See Below) Other Psychiatric History: hyper awareness disorder Endocrine/Metabolic History: Reports: Hypothyroidism, Obesity/BMI 30+ Dermatologic History: Reports: Other (See Below) Other Dermatologic History: pigment discoloeration l shoulder - Infectious Disease History Infectious Disease History: Reports: Chicken Pox - Past Surgical History HEENT Surgical History: Reports: Tonsillectomy Cardiovascular Surgical History: Reports: None GI Surgical History: Reports: Appendectomy, Cholecystectomy, Colonoscopy, EGD Musculoskeletal Surgical History: Reports: Carpal Tunnel Social & Family History - Family History Other Cardiac Family History: father had a triple bypass OBGYN: Reports: - Tobacco Use Smoking Status *Q: Current Every Day Smoker Years of Tobacco use: 20 Packs/Tins Daily: 0.2 Used Tobacco, but Quit: No Month Tobacco Last Used: June Second Hand Smoke Exposure: No - Caffeine Use Caffeine Use: Reports: Coffee, Soda - Alcohol Use Days Per Week of Alcohol Use: 0 Number of Drinks Per Day: 1 Total Drinks Per Week: 0 - Recreational Drug Use Recreational Drug Use: No - Living Situation & Occupation Living situation: Reports: Occupation: Disabled H&P Review of Systems - Review of Systems: Review Of Systems: See Below General: Reports: Fever, Chills, Malaise, Weakness HEENT: Reports: No Symptoms Pulmonary: Reports: No Symptoms Cardiovascular: Reports: No Symptoms Gastrointestinal: Reports: Abdominal Pain, Diarrhea, Vomiting Genitourinary: Reports: No Symptoms Musculoskeletal: Reports: No Symptoms Skin: Reports: No Symptoms Psychiatric: Reports: No Symptoms Neurological: Reports: No Symptoms Hematologic/Lymphatic: Reports: No Symptoms Immunologic: Reports: No Symptoms Exam - Exam Exam: See Below - Vital Signs Vital Signs: Last Vital Signs Temp 97.8 F 02/17/17 08:11 Pulse 53 L 02/17/17 08:11 Resp 16 02/17/17 08:11 BP 145/79 H 02/17/17 08:11 Pulse Ox 98 02/17/17 08:11 Weight: 192 lb 2 oz - Exam General: Alert, Oriented, Cooperative HEENT: PERRLA, Hearing Intact, Posterior Pharynx Clear. No: Mucosa Moist & [place] Neck: Supple, Trachea Midline Lungs: Clear to Auscultation, Normal Respiratory Effort. No: Crackles, Rales, Rhonchi Cardiovascular: Regular Rate, Regular Rhythm. No: Systolic Murmur, Diastolic Murmur GI/Abdominal Exam: Soft, No Organomegaly, Tender (Diffusely tender with no rebound or guarding.), Other (Hyperactive bowel sounds) Back Exam: Normal Inspection, Full Range of Motion Extremities: Normal Inspection, Normal Range of Motion, Non-Tender, No Pedal Edema Skin: Warm, Dry, Intact Neurological: Normal Speech, Normal Tone Neuro Extensive - Mental Status: Alert, Oriented x3, Normal Cognition Neuro Extensive - Motor, Sensory, Reflexes: Normal Gait Psychiatric: Alert, Normal Affect - Patient Data Result Diagrams: 02/15/17 15:15 02/15/17 15:15 *Q Meaningful Use (ADM) - VTE *Q VTE Criteria *Q: - Stroke *Q Stroke Criteria *Q: - AMI *Q AMI Criteria *Q: - Problem List (1) Dehydration SNOMED Code(s): 81549705 ICD Code: E86.0 - DEHYDRATION Status: Acute Priority: Medium Onset Date : 04/27/14 Problem Details: IV fluids (2) Gastroenteritis SNOMED Code(s): 65167678 ICD Code: K52.9 - NONINFECTIVE GASTROENTERITIS AND COLITIS, UNSPECIFIED Status: Acute Problem List Initiated/Reviewed/Updated: Yes Assessment/Plan Comment:: 1. Admit for observation. 2. IV fluid boluses until she is hydrated. 3. Up ad teresa. 4. Clear liquids 5. Check labs. 6. Oral medicines as tolerated.
== END 2017-02-17 12:40 | disposition home or self-care (01) ==
LOC: FB.MS 13:30
PROVIDERS: ADMIT Family Medicine; ATTEND Family Medicine
DX: K29.70 Gastritis, unspecified, without bleeding (principal); R11.10 Vomiting, unspecified; R19.7 Diarrhea, unspecified; R63.4 Abnormal weight loss
CPT/HCPCS: 36415; 80053; 81003; 85025; 87015; 87045; 87046; 87425; 87798; 87899; 96361; 96374; 96375; 96376; A9270; G0378; J1170; J1885; J2270; J2405; J2765; J7040; 99217; 99219; 99225

== ENCOUNTER 2017-08-10 14:21 | Observation (INO) | payer MEDICARE, MEDICAID ==
[2017-08-10] MEDS ORDERED: Sodium Chloride 0.9% 10 ML Syringe FLUSH PRN (14:42)
--- NOTE | 2017-08-10 16:50 | PCM.HP ---
H&P History of Present Illness - General Date of Service: 08/10/17 Admit Problem/Dx: Admission Diagnosis/Problem Admission Diagnosis/Problem Diarrhea Source of Information: Patient History Limitations: Reports: No Limitations - History of Present Illness Initial Comments - Free Text/Narative: This is a 41-year-old female patient with multiple medical problems. She started having diarrhea 8 days ago. She was seen by Dr. King her primary physician. She was seen and was felt to be dehydrated and was given liter fluid. In for 2 days she got better. This is been going on for 8 days. Then she started getting worse again and having multiple diarrhea stools a day. Every time she eats she has a stool so she quit eating and drinking. She's not had any urination for greater than 36 hours. Her stools are loose and watery with no blood. She does have abdominal cramping. She states she's had her gallbladder removed, hysterectomy, appendectomy. She's had a colonoscopy in the past states she does not have diverticulosis. She's had some fevers and chills and night. She's not traveled recently and had no exposures. She does use an antibiotic for prophylactic UTIs and that would be cephalexin. Generalized Pain Score (Numeric/FACES): 7 left and right Upper and lower abdomen Pain Score (Numeric/FACES): 7 - Related Data Allergies/Adverse Reactions: Allergies Allergy/AdvReac Type Severity Reaction Status Date / Time diazepam Allergy Nausea Verified 05/01/16 17:48 gadopentetate dimeglumine Allergy Shortness Verified 05/01/16 17:48 [From Mag[place]] of Breath lorazepam Allergy Numbness Verified 05/01/16 17:48 dye Allergy heart Uncoded 05/01/16 17:48 races, feel like cant breathe IV CONTRAST Allergy Chest Uncoded 05/01/16 17:48 Tightness MRI CONTRAST Allergy Chest Uncoded 05/01/16 17:48 Tightness peppers Allergy Hives Uncoded 05/01/16 17:48 Home Medications: Home Meds Acetaminophen [Pain Reliever] 500 mg PO Q4H PRN 05/21/13 [History] Divalproex Sodium [Depakote ER] 1,000 mg PO BEDTIME 05/21/13 [History] Acetaminophen with Codeine [Acetaminophen-Cod #3] 1 - 2 tab PO Q4H PRN 10/09/14 [History] rOPINIRole HCl [Requip] 1 mg PO BEDTIME 10/09/14 [History] Cephalexin [Keflex] 250 mg PO BEDTIME 11/25/14 [History] FLUoxetine HCl [Fluoxetine HCl] 20 mg PO DAILY 11/28/15 [History] Levothyroxine Sodium 88 mcg PO DAILY 11/28/15 [History] Mirtazapine [Remeron] 30 mg PO BEDTIME 11/28/15 [History] Dextroamphetamine/Amphetamine [Adderall 20 mg Tablet] 20 mg PO BID 05/01/16 [ History] Gemfibrozil [Lopid] 600 mg PO BIDAC 05/01/16 [History] Propranolol [Inderal LA] 180 mg PO BEDTIME 05/01/16 [History] Dicyclomine [Bentyl] 10 mg PO TIDAC 02/15/17 [History] Furosemide [Lasix] 40 mg PO DAILY 02/15/17 [History] Morphine Sulfate [Morphine Sulfate ER] 60 mg PO BID 02/15/17 [History] Solifenacin [Vesicare] 5 mg PO DAILY 02/15/17 [History] diphenhydrAMINE [Benadryl] 25 mg PO ASDIRECTED 02/15/17 [History] FLUoxetine [PROzac] 10 mg PO DAILY 08/10/17 [History] Lubiprostone [Amitiza] 24 mcg PO BIDMEALS 08/10/17 [History] Modafinil [Provigil] 100 mg PO BID 08/10/17 [History] Past Medical History HEENT History: Reports: Impaired Vision Cardiovascular History: Reports: High Cholesterol Respiratory History: Reports: Pneumonia, Recurrent Gastrointestinal History: Reports: Cholelithiasis Genitourinary History: Reports: Other (See Below) Other Genitourinary History: bladder botox for leakage, done every 6 months. BASIN TENDER History: Reports: Endometriosis, , Other (See Below) Other OB/BYN History: hysterectomy Musculoskeletal History: Reports: Back Pain, Chronic, Fibromyalgia, Other (See Below) Other Musculoskeletal History: multiple sclerosis, degenerative disk disease Neurological History: Reports: Migraines, MS, Vertigo, Other (See Below) Other Neuro History: Botox for migraines Psychiatric History: Reports: Anxiety, Depression, PTSD, Other (See Below) Other Psychiatric History: hyper awareness disorder Endocrine/Metabolic History: Reports: Hypothyroidism, Obesity/BMI 30+ Dermatologic History: Reports: Other (See Below) Other Dermatologic History: pigment discoloration nata. shoulder - Infectious Disease History Infectious Disease History: Reports: Chicken Pox - Past Surgical History HEENT Surgical History: Reports: Tonsillectomy Cardiovascular Surgical History: Reports: None GI Surgical History: Reports: Appendectomy, Cholecystectomy, Colonoscopy, EGD Female Surgical History: Reports: None Musculoskeletal Surgical History: Reports: Carpal Tunnel Social & Family History - Family History Family Medical History: Noncontributory Other Cardiac Family History: father had a triple bypass OBGYN: Reports: - Tobacco Use Smoking Status *Q: Current Every Day Smoker Years of Tobacco use: 13 Packs/Tins Daily: 0.4 Second Hand Smoke Exposure: Yes - Caffeine Use Caffeine Use: Reports: Soda Other Caffeine Use: 4-5 cans pop per day - Recreational Drug Use Recreational Drug Use: Yes Drug Use in Last 12 Months: No Recreational Drug Type: Reports: Marijuana/Hashish Recreational Drug Last Use: 20 years ago - Living Situation & Occupation Living situation: Reports: Occupation: Disabled H&P Review of Systems - Review of Systems: Review Of Systems: See Below General: Reports: Fever, Chills HEENT: Reports: Other (Rhinorrhea) Pulmonary: Reports: Cough. Denies: Shortness of Breath, Wheezing, Sputum, Hemoptysis Cardiovascular: Reports: No Symptoms Gastrointestinal: Reports: Abdominal Pain, Diarrhea, Decreased Appetite Genitourinary: Reports: No Symptoms Musculoskeletal: Reports: Muscle Stiffness (Which is normal for her) Skin: Reports: No Symptoms Psychiatric: Reports: No Symptoms Neurological: Reports: No Symptoms Hematologic/Lymphatic: Reports: No Symptoms Immunologic: Reports: No Symptoms Exam - Exam Exam: See Below - Vital Signs Vital Signs: Last Vital Signs Temp 98.1 F 08/10/17 14:42 Pulse 62 08/10/17 14:42 Resp 14 08/10/17 14:42 BP 109/62 08/10/17 14:42 Pulse Ox 95 08/10/17 14:42 Weight: 182 lb 4.8 oz - Exam General: Alert, Oriented, Cooperative HEENT: Hearing Intact, Mucosa Moist & [place], Posterior Pharynx Clear, TMs Clear Neck: Supple, Trachea Midline, Full Range of Motion. No: Lymphadenopathy Lungs: Clear to Auscultation, Normal Respiratory Effort Cardiovascular: Regular Rate, Regular Rhythm. No: Tachycardia, Systolic Murmur GI/Abdominal Exam: Soft, Tender. No: Guarding, Rigid, Rebound Back Exam: Normal Inspection, Full Range of Motion, NT Extremities: Normal Inspection, Normal Range of Motion, Non-Tender, No Pedal Edema Skin: Warm, Dry, Intact Neurological: Normal Speech, Normal Tone Neuro Extensive - Mental Status: Alert, Oriented x3, Normal Cognition Neuro Extensive - Motor, Sensory, Reflexes: Other (Walks with a cane) Psychiatric: Alert - Patient Data Lab Results Last 24 hrs: Laboratory Results - last 24 hr 08/10/17 08/10/17 Range/Units 15:00 15:00 WBC 6.6 (4.5-12.0) X10-3/uL RBC 4.16 (3.23-5.20) x10(6)uL Hgb 13.1 (11.5-15.5) g/dL Hct 37.9 (30.0-51.3) % MCV 91.3 (80-96) fL MCH 31.5 (27.7-33.6) pg MCHC 34.5 (32.2-35.4) g/dL RDW 11.4 L (11.5-15.5) % Plt Count 225 (125-369) X10(3)uL MPV 9.2 (7.4-10.4) fL Neut % (Auto) 59.5 (46-82) % Lymph % (Auto) 32.9 (13-37) % [place] % (Auto) 6.1 (4-12) % Eos % (Auto) 1 (1.0-5.0) % Baso % (Auto) 1 (0-2) % Neut # (Auto) 3.9 (1.6-8.3) # Lymph # (Auto) 2.2 (0.6-5.0) # [place] # (Auto) 0.4 (0.0-1.3) # Eos # (Auto) 0.1 (0.0-0.8) # Baso # (Auto) 0.0 (0.0-0.2) # Sodium 140 (135-145) mmol/L Potassium 3.6 (3.5-5.3) mmol/L Chloride 105 (100-110) mmol/L Carbon Dioxide 26 (21-32) mmol/L BUN 15 (7-18) mg/dL Creatinine 0.8 (0.55-1.02) mg/dL Est Cr Clr Drug Dosing 84.95 mL/min Estimated GFR (MDRD) > 60 (>60) BUN/Creatinine Ratio 18.8 (9-20) Glucose 87 (80-116) mg/dL Calcium 9.1 (8.6-10.2) mg/dL Total Bilirubin 0.3 (0.1-1.3) mg/dL AST 17 D (5-25) IU/L ALT 20 D (12-36) U/L Alkaline Phosphatase 101 (56-112) IU/L Total Protein 7.1 (6.0-8.0) g/dL Albumin 3.9 (3.5-5.2) g/dL Globulin 3.2 g/dL Albumin/Globulin Ratio 1.2 Result Diagrams: 08/10/17 15:00 08/10/17 15:00 - Problem List (1) Dehydration SNOMED Code(s): 32395021 ICD Code: E86.0 - DEHYDRATION Status: Acute Current Visit: Yes (2) Gastroenteritis SNOMED Code(s): 99280125 ICD Code: K52.9 - NONINFECTIVE GASTROENTERITIS AND COLITIS, UNSPECIFIED Status: Acute Current Visit: No Problem List Initiated/Reviewed/Updated: Yes Orders Last 24hrs: Active Orders 24 hr Category Date Time Status Patient Status [ADT] Routine ADT 08/10/17 14:42 Active Ambulate [RC] ASDIRECTED Care 08/10/17 14:42 Active Height and Weight [RC] DAILY Care 08/10/17 14:42 Active Intake and Output [RC] QSHIFT Care 08/10/17 14:43 Active Oxygen Therapy [RC] PRN Care 08/10/17 14:42 Active VTE/DVT Education [RC] Per Unit Routine Care 08/10/17 14:42 Active Vital Signs [RC] Q4H Care 08/10/17 14:42 Active Full Liquid Diet [DIET] Diet 08/10/17 Dinner Active CULTURE BLOOD [BC] Urgent Lab 08/10/17 15:00 Received CULTURE BLOOD [BC] Urgent Lab 08/10/17 15:06 Received STOOL CULTURE Routine Lab 08/10/17 14:47 Ordered Enoxaparin [Lovenox] Med 08/10/17 16:00 Active 40 mg SUBCUT Q24H Sodium Chloride 0.9% [Normal Saline] 1,000 ml Med 08/10/17 14:45 Active IV ASDIRECTED Sodium Chloride 0.9% [Saline Flush] Med 08/10/17 14:42 Active 10 ml FLUSH ASDIRECTED PRN Blood Culture x2 Reflex Set [OM.PC] Urgent Oth 08/10/17 14:42 Ordered Peripheral IV Insertion Adult [OM.PC] Routine Oth 08/10/17 14:42 Ordered Sequential Compression Device [OM.PC] Per Unit Routine Oth 08/10/17 14:45 Ordered Resuscitation Status Routine Resus Stat 08/10/17 14:42 Ordered Medication Orders Enoxaparin Sodium (Lovenox) 40 mg SUBCUT Q24H ECHO Sodium Chloride (Normal Saline) 1,000 mls @ 250 mls/hr IV ASDIRECTED ECHO Sodium Chloride (Saline Flush) 10 ml FLUSH ASDIRECTED PRN PRN Reason: Keep Vein Open Assessment/Plan Comment:: 1. Admit for observation with full code. 2. VTE for full axis Lovenox 40 mg subcu every 24 hours. 3. 250 mg IV normal saline per hour. 4. Blood cultures, Chem-12, CBC, UA, C. diff and stool culture 5. Continue regular medications. 6. Full liquid diet. 7. Up ad teresa.
[2017-08-10] MEDS: Enoxaparin 40 MG/0.4 ML Syringe SUBCUT SCH (16:55)
[2017-08-10] MEDS: Sodium Chloride 0.9% 1,000 ML IV SCH ×2 (16:55→20:53)
[2017-08-10] MEDS ORDERED: OLANZapine 5 MG Tab PO PRN (20:15)
[2017-08-10] MEDS ORDERED: Acetaminophen/Codeine 300-30 MG Tab PO PRN (22:09)
[2017-08-10] MEDS ORDERED: Acetaminophen 500 MG Tab PO PRN (22:09)
[2017-08-10] MEDS ORDERED: DIPHENHYDRAMINE 25 MG PO PRN (22:16)
[2017-08-10] MEDS ORDERED: Morphine 30 MG Tab.ER PO SCH (22:30)
[2017-08-10] MEDS: AMPHETAMINE PO SCH (23:43)
[2017-08-10] MEDS: DEXTROAMPHETAMINE PO SCH (23:43)
[2017-08-11] MEDS: DIVALPROEX SODIUM 500 MG PO SCH ×2 (00:29→20:03)
[2017-08-11] MEDS: ROPINIROLE 1 MG PO SCH ×2 (00:30→20:13)
[2017-08-11] MEDS: PROPRANOLOL 60 MG PO SCH ×2 (00:30→20:11)
[2017-08-11] MEDS: MIRTAZAPINE 30 MG PO SCH ×2 (00:30→20:13)
[2017-08-11] MEDS: Sodium Chloride 0.9% 1,000 ML IV SCH ×4 (00:37→19:20)
[2017-08-11] MEDS: DICYCLOMINE 10 MG PO SCH ×4 (07:28→17:56)
[2017-08-11] MEDS: GEMFIBROZIL 600 MG PO SCH ×3 (07:29→17:57)
[2017-08-11] MEDS: LUBIPROSTONE 24 MCG PO SCH ×3 (07:29→18:45)
--- NOTE | 2017-08-11 08:54 | PCM.PN ---
- General Info Date of Service: 08/11/17 Admission Dx/Problem (Free Text): Patient states that she's had no diarrhea since she's been here. She's had no nausea, vomiting, fevers or chills. She says she passed gas this morning with no diarrhea. She started to be able to drink now and we are using for liquids. She still has some abdominal cramping but that's improved. She also has a history of irritable bowel. - Patient Data Vitals - Most Recent: Last Vital Signs Temp 98.4 F 08/11/17 00:00 Pulse 54 L 08/11/17 05:00 Resp 18 08/11/17 05:00 BP 99/60 08/11/17 05:00 Pulse Ox 96 08/11/17 05:00 Weight - Most Recent: 194 lb 6.4 oz I&O - Last 24 Hours: Intake & Output 08/10/17 08/11/17 08/11/17 22:59 06:59 14:59 Intake Total 1005 1964 Output Total 800 Balance 1005 1164 Lab Results Last 24 Hours: Laboratory Results - last 24 hr 08/10/17 08/10/17 Range/Units 15:00 15:00 WBC 6.6 (4.5-12.0) X10-3/uL RBC 4.16 (3.23-5.20) x10(6)uL Hgb 13.1 (11.5-15.5) g/dL Hct 37.9 (30.0-51.3) % MCV 91.3 (80-96) fL MCH 31.5 (27.7-33.6) pg MCHC 34.5 (32.2-35.4) g/dL RDW 11.4 L (11.5-15.5) % Plt Count 225 (125-369) X10(3)uL MPV 9.2 (7.4-10.4) fL Neut % (Auto) 59.5 (46-82) % Lymph % (Auto) 32.9 (13-37) % [place] % (Auto) 6.1 (4-12) % Eos % (Auto) 1 (1.0-5.0) % Baso % (Auto) 1 (0-2) % Neut # (Auto) 3.9 (1.6-8.3) # Lymph # (Auto) 2.2 (0.6-5.0) # [place] # (Auto) 0.4 (0.0-1.3) # Eos # (Auto) 0.1 (0.0-0.8) # Baso # (Auto) 0.0 (0.0-0.2) # Sodium 140 (135-145) mmol/L Potassium 3.6 (3.5-5.3) mmol/L Chloride 105 (100-110) mmol/L Carbon Dioxide 26 (21-32) mmol/L BUN 15 (7-18) mg/dL Creatinine 0.8 (0.55-1.02) mg/dL Est Cr Clr Drug Dosing 84.95 mL/min Estimated GFR (MDRD) > 60 (>60) BUN/Creatinine Ratio 18.8 (9-20) Glucose 87 (80-116) mg/dL Calcium 9.1 (8.6-10.2) mg/dL Total Bilirubin 0.3 (0.1-1.3) mg/dL AST 17 D (5-25) IU/L ALT 20 D (12-36) U/L Alkaline Phosphatase 101 (56-112) IU/L Total Protein 7.1 (6.0-8.0) g/dL Albumin 3.9 (3.5-5.2) g/dL Globulin 3.2 g/dL Albumin/Globulin Ratio 1.2 Med Orders - Current: Current Medications Acetaminophen (Tylenol Extra Strength) 500 mg PO Q4H PRN PRN Reason: Pain Acetaminophen/Codeine Phosphate (Tylenol With Codeine No.3 300mg/30mg) 1 tab PO Q4H PRN PRN Reason: BACK PAIN Cephalexin (Keflex) 250 mg PO BEDTIME [facility] Dicyclomine HCl (Bentyl) 10 mg PO TIDAC [facility] Last Admin: 08/11/17 07:30 Dose: Not Given Diphenhydramine HCl (Benadryl) 25 mg PO Q6H PRN PRN Reason: Anxiety Divalproex Sodium (Depakote Er) 1,000 mg PO BEDTIME [facility] Last Admin: 08/11/17 00:29 Dose: 1,000 mg Enoxaparin Sodium (Lovenox) 40 mg SUBCUT Q24H [facility] Last Admin: 08/10/17 16:55 Dose: 40 mg Fluoxetine HCl (Prozac) 20 mg PO DAILY [facility] Fluoxetine HCl (Prozac) 10 mg PO DAILY [facility] Furosemide (Lasix) 40 mg PO DAILY [facility] Gemfibrozil (Lopid) 600 mg PO BIDAC [facility] Sodium Chloride (Normal Saline) 1,000 mls @ 100 mls/hr IV ASDIRECTED [facility] Last Admin: 08/11/17 04:46 Dose: 250 mls/hr Levothyroxine Sodium (Synthroid) 88 mcg PO ACBREAKFAST [facility] Mirtazapine (Remeron) 30 mg PO BEDTIME [facility] Last Admin: 08/11/17 00:30 Dose: 30 mg Morphine Sulfate (Ms Contin) 30 mg PO BID [facility] Dextroamphetamine/Amphetamine [ Adderall 20 Mg Tablet] Pt Own 20 mg PO BID [facility] Last Admin: 08/10/17 23:43 Dose: 20 mg Lubiprostone [ Amitiza] 24 McgPt Own 24 mcg PO BIDMEALS [facility] Last Admin: 08/11/17 07:30 Dose: Not Given Modafinil [Provigil] (200 MgPt Own) 100 mg PO BID [facility] Olanzapine (Zyprexa) 5 mg PO ONETIME PRN PRN Reason: Pain Last Admin: 08/10/17 20:53 Dose: 5 mg Propranolol HCl (Inderal La) 180 mg PO BEDTIME [facility] Last Admin: 08/11/17 00:30 Dose: 180 mg Ropinirole HCl (Requip) 1 mg PO BEDTIME [facility] Last Admin: 08/11/17 00:30 Dose: 1 mg Sodium Chloride (Saline Flush) 10 ml FLUSH ASDIRECTED PRN PRN Reason: Keep Vein Open Last Admin: 08/10/17 16:45 Dose: 10 ml Solifenacin (Vesicare) 5 mg PO DAILY [facility] Discontinued Medications Divalproex Sodium (Depakote Er) 1,000 mg PO BEDTIME [facility] Levothyroxine Sodium (Synthroid) 88 mcg PO DAILY [facility] Last Admin: 08/11/17 07:28 Dose: 88 mcg Morphine Sulfate (Ms Contin) 60 mg PO BID [facility] Last Admin: 08/10/17 23:44 Dose: 60 mg Gemfibrozil [Lopid] (600 MgPt Own) 600 mg PO BIDAC [facility] Last Admin: 08/11/17 07:30 Dose: Not Given - Exam General: Alert, Oriented Lungs: Normal Respiratory Effort GI/Abdominal Exam: Normal Bowel Sounds, Soft, Tender (Diffuse). No: Guarding, Rigid, Rebound - Problem List & Annotations (1) Dehydration SNOMED Code(s): 02157094 Code(s): E86.0 - DEHYDRATION Status: Acute Current Visit: Yes (2) Gastroenteritis SNOMED Code(s): 70808329 Code(s): K52.9 - NONINFECTIVE GASTROENTERITIS AND COLITIS, UNSPECIFIED Status: Acute Current Visit: No - Problem List Review Problem List Initiated/Reviewed/Updated: Yes - My Orders Last 24 Hours: My Active Orders 08/10/17 14:42 Patient Status [ADT] Routine Ambulate [RC] ASDIRECTED Height and Weight [RC] DAILY Oxygen Therapy [RC] PRN VTE/DVT Education [RC] Per Unit Routine Vital Signs [RC] QSHIFT Sodium Chloride 0.9% [Saline Flush] 10 ml FLUSH ASDIRECTED PRN Blood Culture x2 Reflex Set [OM.PC] Urgent Peripheral IV Insertion Adult [OM.PC] Routine Resuscitation Status Routine 08/10/17 14:43 Intake and Output [RC] 22,06,14 08/10/17 14:45 Sodium Chloride 0.9% [Normal Saline] 1,000 ml IV ASDIRECTED Sequential Compression Device [OM.PC] Per Unit Routine 08/10/17 14:47 STOOL CULTURE Routine 08/10/17 15:00 CULTURE BLOOD [BC] Urgent 08/10/17 15:06 CULTURE BLOOD [BC] Urgent 08/10/17 16:00 Enoxaparin [Lovenox] 40 mg SUBCUT Q24H 08/10/17 22:09 Acetaminophen [Tylenol Extra Strength] 500 mg PO Q4H PRN Acetaminophen/Codeine [Tylenol with Codeine No.3 300MG/30MG] 1 tab PO Q4H PRN 08/10/17 22:16 diphenhydrAMINE [Benadryl] 25 mg PO Q6H PRN 08/10/17 22:30 Dextroamphetamine/Amphetamine [Adderall 20 mg Tablet] 20 mg PO BID 08/10/17 Dinner Full Liquid Diet [DIET] 08/11/17 00:00 Divalproex Sodium [Depakote ER] 1,000 mg PO BEDTIME Mirtazapine [Remeron] 30 mg PO BEDTIME Propranolol [Inderal LA] 180 mg PO BEDTIME rOPINIRole [Requip] 1 mg PO BEDTIME 08/11/17 07:30 Dicyclomine [Bentyl] 10 mg PO TIDAC 08/11/17 08:00 Lubiprostone [Amitiza] 24 mcg PO BIDMEALS 08/11/17 09:00 FLUoxetine [PROzac] 10 mg PO DAILY FLUoxetine [PROzac] 20 mg PO DAILY Furosemide [Lasix] 40 mg PO DAILY Modafinil [Provigil] 100 mg PO BID Morphine [MS Contin] 30 mg PO BID Solifenacin [Vesicare] 5 mg PO DAILY 08/11/17 17:30 Gemfibrozil [Lopid] 600 mg PO BIDAC 08/11/17 21:00 Cephalexin [Keflex] 250 mg PO BEDTIME 08/11/17 Lunch Regular Diet [DIET] 08/12/17 07:30 Levothyroxine [Synthroid] 88 mcg PO ACBREAKFAST - Plan Plan:: 1. Decrease IV rate 100 and hour. 2. Advance diet to regular diet. 3. Up in chair and ambulate frequently.
[2017-08-11] MEDS ORDERED: LEVOTHYROXINE 88 MCG PO SCH (09:00)
[2017-08-11] MEDS: Morphine 30 MG Tab.ER PO SCH ×2 (09:20→20:25)
[2017-08-11] MEDS: Furosemide 40 MG Tab *PTOM PO SCH (09:21)
[2017-08-11] MEDS: DEXTROAMPHETAMINE PO SCH ×2 (09:23→20:04)
[2017-08-11] MEDS: AMPHETAMINE PO SCH ×2 (09:23→20:04)
[2017-08-11] MEDS: SOLIFENACIN 5 MG PO SCH (09:32)
[2017-08-11] MEDS: MODAFINIL 200 MG PO SCH ×2 (09:33→20:12)
[2017-08-11] MEDS: FLUOXETINE 10 MG PO SCH (09:33)
[2017-08-11] MEDS: FLUOXETINE 20 MG PO SCH (09:34)
[2017-08-11] MEDS: Enoxaparin 40 MG/0.4 ML Syringe SUBCUT SCH (15:56)
[2017-08-11] MEDS ORDERED: CEPHALEXIN 250 MG PO SCH (21:00)
[2017-08-11] MEDS ORDERED: DIVALPROEX SODIUM 500 MG PO SCH (22:19)
[2017-08-12] MEDS: Sodium Chloride 0.9% 1,000 ML IV SCH (05:14)
[2017-08-12] MEDS ORDERED: LEVOTHYROXINE 88 MCG PO SCH (07:30)
[2017-08-12] MEDS: GEMFIBROZIL 600 MG PO SCH (07:45)
[2017-08-12] MEDS: DICYCLOMINE 10 MG PO SCH ×2 (07:45→12:57)
[2017-08-12] MEDS: LUBIPROSTONE 24 MCG PO SCH (07:45)
[2017-08-12] MEDS: Morphine 30 MG Tab.ER PO SCH (08:54)
[2017-08-12] MEDS: AMPHETAMINE PO SCH (08:55)
[2017-08-12] MEDS: DEXTROAMPHETAMINE PO SCH (08:55)
[2017-08-12] MEDS: Furosemide 40 MG Tab *PTOM PO SCH (08:59)
[2017-08-12] MEDS: MODAFINIL 200 MG PO SCH (09:00)
[2017-08-12] MEDS: FLUOXETINE 10 MG PO SCH (09:00)
[2017-08-12] MEDS: FLUOXETINE 20 MG PO SCH (09:00)
[2017-08-12] MEDS: SOLIFENACIN 5 MG PO SCH (09:01)
--- NOTE | 2017-08-12 09:11 | PCM.PN ---
- General Info Date of Service: 08/12/17 Admission Dx/Problem (Free Text): Chest abdominal cramping has improved. She had one diarrhea stool yesterday but has not had any after she ate. Appetite is good. No fevers, chills or vomiting. No hematochezia or melena. - Patient Data Vitals - Most Recent: Last Vital Signs Temp 98.0 F 08/12/17 00:00 Pulse 56 L 08/12/17 00:00 Resp 17 08/12/17 00:00 BP 112/64 08/12/17 00:00 Pulse Ox 96 08/12/17 00:00 Weight - Most Recent: 193 lb 6.4 oz I&O - Last 24 Hours: Intake & Output 08/11/17 08/12/17 08/12/17 22:59 06:59 14:59 Intake Total 713 180 Balance 713 180 Patric Results Last 24 Hours: Microbiology 08/10/17 15:06 Aerobic Blood Culture - Preliminary Blood - Venous - Lab Draw NO GROWTH AFTER 1 DAY Anaerobic Blood Culture - Preliminary NO GROWTH AFTER 1 DAY 08/10/17 15:00 Aerobic Blood Culture - Preliminary Blood - Venous NO GROWTH AFTER 1 DAY Anaerobic Blood Culture - Preliminary NO GROWTH AFTER 1 DAY Med Orders - Current: Current Medications Acetaminophen (Tylenol Extra Strength) 500 mg PO Q4H PRN PRN Reason: Pain Acetaminophen/Codeine Phosphate (Tylenol With Codeine No.3 300mg/30mg) 1 tab PO Q4H PRN PRN Reason: BACK PAIN Cephalexin (Keflex) 250 mg PO BEDTIME [facility] Last Admin: 08/11/17 20:11 Dose: 250 mg Dicyclomine HCl (Bentyl) 10 mg PO TIDAC [facility] Last Admin: 08/12/17 07:45 Dose: 10 mg Diphenhydramine HCl (Benadryl) 25 mg PO Q6H PRN PRN Reason: Anxiety Divalproex Sodium (Depakote Er) 1,000 mg PO BEDTIME [facility] Last Admin: 08/11/17 20:03 Dose: 1,000 mg Enoxaparin Sodium (Lovenox) 40 mg SUBCUT Q24H [facility] Last Admin: 08/11/17 15:56 Dose: 40 mg Fluoxetine HCl (Prozac) 20 mg PO DAILY [facility] Last Admin: 08/12/17 09:00 Dose: 20 mg Fluoxetine HCl (Prozac) 10 mg PO DAILY [facility] Last Admin: 08/12/17 09:00 Dose: 10 mg Furosemide (Lasix) 40 mg PO DAILY [facility] Last Admin: 08/12/17 08:59 Dose: 40 mg Gemfibrozil (Lopid) 600 mg PO BIDAC [facility] Last Admin: 08/12/17 07:45 Dose: 600 mg Sodium Chloride (Normal Saline) 1,000 mls @ 100 mls/hr IV ASDIRECTED [facility] Last Admin: 08/12/17 05:14 Dose: 250 mls/hr Levothyroxine Sodium (Synthroid) 88 mcg PO ACBREAKFAST [facility] Last Admin: 08/12/17 07:44 Dose: 88 mcg Mirtazapine (Remeron) 30 mg PO BEDTIME [facility] Last Admin: 08/11/17 20:13 Dose: 30 mg Morphine Sulfate (Ms Contin) 30 mg PO BID [facility] Last Admin: 08/12/17 08:54 Dose: 30 mg Dextroamphetamine/Amphetamine [ Adderall 20 Mg Tablet] Pt Own 20 mg PO BID [facility] Last Admin: 08/12/17 08:55 Dose: 20 mg Lubiprostone [ Amitiza] 24 McgPt Own 24 mcg PO BIDMEALS [facility] Last Admin: 08/12/17 07:45 Dose: 24 mcg Modafinil [Provigil] (200 MgPt Own) 100 mg PO BID [facility] Last Admin: 08/12/17 09:00 Dose: 100 mg Olanzapine (Zyprexa) 5 mg PO ONETIME PRN PRN Reason: Pain Last Admin: 08/10/17 20:53 Dose: 5 mg Propranolol HCl (Inderal La) 180 mg PO BEDTIME [facility] Last Admin: 08/11/17 20:11 Dose: 180 mg Ropinirole HCl (Requip) 1 mg PO BEDTIME [facility] Last Admin: 08/11/17 20:13 Dose: 1 mg Sodium Chloride (Saline Flush) 10 ml FLUSH ASDIRECTED PRN PRN Reason: Keep Vein Open Last Admin: 08/10/17 16:45 Dose: 10 ml Solifenacin (Vesicare) 5 mg PO DAILY [facility] Last Admin: 08/12/17 09:01 Dose: 5 mg Discontinued Medications Divalproex Sodium (Depakote Er) 1,000 mg PO BEDTIME [facility] Levothyroxine Sodium (Synthroid) 88 mcg PO DAILY [facility] Last Admin: 08/11/17 07:28 Dose: 88 mcg Morphine Sulfate (Ms Contin) 60 mg PO BID [facility] Last Admin: 08/10/17 23:44 Dose: 60 mg Gemfibrozil [Lopid] (600 MgPt Own) 600 mg PO BIDAC [facility] Last Admin: 08/11/17 07:30 Dose: Not Given - Exam General: Alert, Oriented, Cooperative Lungs: Normal Respiratory Effort GI/Abdominal Exam: Normal Bowel Sounds, Soft, Non-Tender, No Distention - Problem List & Annotations (1) Dehydration SNOMED Code(s): 99961525 Code(s): E86.0 - DEHYDRATION Status: Acute Current Visit: Yes (2) Gastroenteritis SNOMED Code(s): 03525501 Code(s): K52.9 - NONINFECTIVE GASTROENTERITIS AND COLITIS, UNSPECIFIED Status: Acute Current Visit: No - Problem List Review Problem List Initiated/Reviewed/Updated: Yes - My Orders Last 24 Hours: My Active Orders 08/11/17 09:00 FLUoxetine [PROzac] 10 mg PO DAILY FLUoxetine [PROzac] 20 mg PO DAILY Furosemide [Lasix] 40 mg PO DAILY Modafinil [Provigil] 100 mg PO BID Morphine [MS Contin] 30 mg PO BID Solifenacin [Vesicare] 5 mg PO DAILY 08/11/17 15:40 CDIFF TOXIN A+B GROUP [OP] Urgent 08/11/17 17:30 Gemfibrozil [Lopid] 600 mg PO BIDAC 08/11/17 21:00 Cephalexin [Keflex] 250 mg PO BEDTIME 08/11/17 Lunch Regular Diet [DIET] 08/12/17 07:30 Levothyroxine [Synthroid] 88 mcg PO ACBREAKFAST - Plan Plan:: 1. Discharge to home. Follow-up with Dr. King
--- NOTE | 2017-08-12 09:15 | PCM.DCSUM1 ---
Discharge Summary - Hospital Course Free Text/Narrative:: Hospital course-patient was put on 250 cc of normal saline per hour overnight. She put on low oxalate overnight in decrease IV rate to 100 mL in the morning. She was prophylaxed for clotting with Lovenox. She had no diarrhea stools, nausea vomiting overnight. She was on full liquids and tolerated them. Had one diarrhea stool on day #2. She was worried that she would have more. She did not and had a good supper and was passing gas. Her abdominal cramping improved. She had no fevers, chills hematochezia or melena or nausea or vomiting. C. difficile was ordered and is still pending at this time. Brief History: This is a 41-year-old female patient with multiple medical problems. She started having diarrhea 8 days ago. She was seen by Dr. King her primary physician. She was seen and was felt to be dehydrated and was given liter fluid. In for 2 days she got better. This is been going on for 8 days. Then she started getting worse again and having multiple diarrhea stools a day. Every time she eats she has a stool so she quit eating and drinking. She's not had any urination for greater than 36 hours. Her stools are loose and watery with no blood. She does have abdominal cramping. She states she's had her gallbladder removed, hysterectomy, appendectomy. She' s had a colonoscopy in the past states she does not have diverticulosis. She's had some fevers and chills and night. She's not traveled recently and had no exposures. She does use an antibiotic for prophylactic UTIs and that would be cephalexin. - Discharge Data Discharge Date: 08/12/17 Discharge Disposition: Home, Self-Care 01 Condition: Good - Discharge Diagnosis/Problem(s) (1) Dehydration SNOMED Code(s): 72472556 ICD Code: E86.0 - DEHYDRATION Status: Acute Current Visit: Yes (2) Gastroenteritis SNOMED Code(s): 84785174 ICD Code: K52.9 - NONINFECTIVE GASTROENTERITIS AND COLITIS, UNSPECIFIED Status: Acute Current Visit: No - Patient Instructions Diet: Regular Diet as Tolerated Driving: May Drive Today Showering/Bathing: May Shower Notify Provider of: Nausea and/or Vomiting Other/Special Instructions: 1. Recheck with Dr. King 7-[address] King to follow up on C. difficile which is still pending. - Discharge Plan Home Medications: Home Meds Acetaminophen [Pain Reliever] 500 mg PO Q4H PRN 05/21/13 [History] Divalproex Sodium [Depakote ER] 1,000 mg PO BEDTIME 05/21/13 [History] Acetaminophen with Codeine [Acetaminophen-Cod #3] 1 - 2 tab PO Q4H PRN 10/09/14 [History] rOPINIRole HCl [Requip] 1 mg PO BEDTIME 10/09/14 [History] Cephalexin [Keflex] 250 mg PO BEDTIME 11/25/14 [History] FLUoxetine HCl [Fluoxetine HCl] 20 mg PO DAILY 11/28/15 [History] Levothyroxine Sodium 88 mcg PO DAILY 11/28/15 [History] Mirtazapine [Remeron] 30 mg PO BEDTIME 11/28/15 [History] Dextroamphetamine/Amphetamine [Adderall 20 mg Tablet] 20 mg PO BID 05/01/16 [ History] Gemfibrozil [Lopid] 600 mg PO BIDAC 05/01/16 [History] Propranolol [Inderal LA] 180 mg PO BEDTIME 05/01/16 [History] Dicyclomine [Bentyl] 10 mg PO TIDAC 02/15/17 [History] Furosemide [Lasix] 40 mg PO DAILY 02/15/17 [History] Morphine Sulfate [Morphine Sulfate ER] 30 mg PO BID 02/15/17 [History] Solifenacin [Vesicare] 5 mg PO DAILY 02/15/17 [History] diphenhydrAMINE [Benadryl] 25 mg PO ASDIRECTED 02/15/17 [History] FLUoxetine [PROzac] 10 mg PO DAILY 08/10/17 [History] Lubiprostone [Amitiza] 24 mcg PO BIDMEALS 08/10/17 [History] Modafinil [Provigil] 100 mg PO BID 08/10/17 [History] Patient Handouts: Diarrhea, Adult, Dehydration, Adult, [id number], Venous Thromboembolism Prevention - Discharge Summary/Plan Comment DC Time >30 min.: No - Patient Data Vitals - Most Recent: Last Vital Signs Temp 98.0 F 08/12/17 00:00 Pulse 56 L 08/12/17 00:00 Resp 17 08/12/17 00:00 BP 112/64 08/12/17 00:00 Pulse Ox 96 08/12/17 00:00 Weight - Most Recent: 193 lb 6.4 oz I&O - Last 24 hours: Intake & Output 08/11/17 08/12/17 08/12/17 22:59 06:59 14:59 Intake Total 713 180 Balance 713 180 SHORTY Results - Last 24 hrs: Microbiology 08/10/17 15:06 Aerobic Blood Culture - Preliminary Blood - Venous - Lab Draw NO GROWTH AFTER 1 DAY Anaerobic Blood Culture - Preliminary NO GROWTH AFTER 1 DAY 08/10/17 15:00 Aerobic Blood Culture - Preliminary Blood - Venous NO GROWTH AFTER 1 DAY Anaerobic Blood Culture - Preliminary NO GROWTH AFTER 1 DAY Med Orders - Current: Current Medications Acetaminophen (Tylenol Extra Strength) 500 mg PO Q4H PRN PRN Reason: Pain Acetaminophen/Codeine Phosphate (Tylenol With Codeine No.3 300mg/30mg) 1 tab PO Q4H PRN PRN Reason: BACK PAIN Cephalexin (Keflex) 250 mg PO BEDTIME [facility] Last Admin: 08/11/17 20:11 Dose: 250 mg Dicyclomine HCl (Bentyl) 10 mg PO TIDAC [facility] Last Admin: 08/12/17 07:45 Dose: 10 mg Diphenhydramine HCl (Benadryl) 25 mg PO Q6H PRN PRN Reason: Anxiety Divalproex Sodium (Depakote Er) 1,000 mg PO BEDTIME [facility] Last Admin: 08/11/17 20:03 Dose: 1,000 mg Enoxaparin Sodium (Lovenox) 40 mg SUBCUT Q24H [facility] Last Admin: 08/11/17 15:56 Dose: 40 mg Fluoxetine HCl (Prozac) 20 mg PO DAILY [facility] Last Admin: 08/12/17 09:00 Dose: 20 mg Fluoxetine HCl (Prozac) 10 mg PO DAILY [facility] Last Admin: 08/12/17 09:00 Dose: 10 mg Furosemide (Lasix) 40 mg PO DAILY [facility] Last Admin: 08/12/17 08:59 Dose: 40 mg Gemfibrozil (Lopid) 600 mg PO BIDAC [facility] Last Admin: 08/12/17 07:45 Dose: 600 mg Sodium Chloride (Normal Saline) 1,000 mls @ 100 mls/hr IV ASDIRECTED [facility] Last Admin: 08/12/17 05:14 Dose: 250 mls/hr Levothyroxine Sodium (Synthroid) 88 mcg PO ACBREAKFAST [facility] Last Admin: 08/12/17 07:44 Dose: 88 mcg Mirtazapine (Remeron) 30 mg PO BEDTIME [facility] Last Admin: 08/11/17 20:13 Dose: 30 mg Morphine Sulfate (Ms Contin) 30 mg PO BID [facility] Last Admin: 08/12/17 08:54 Dose: 30 mg Dextroamphetamine/Amphetamine [ Adderall 20 Mg Tablet] Pt Own 20 mg PO BID [facility] Last Admin: 08/12/17 08:55 Dose: 20 mg Lubiprostone [ Amitiza] 24 McgPt Own 24 mcg PO BIDMEALS [facility] Last Admin: 08/12/17 07:45 Dose: 24 mcg Modafinil [Provigil] (200 MgPt Own) 100 mg PO BID [facility] Last Admin: 08/12/17 09:00 Dose: 100 mg Olanzapine (Zyprexa) 5 mg PO ONETIME PRN PRN Reason: Pain Last Admin: 08/10/17 20:53 Dose: 5 mg Propranolol HCl (Inderal La) 180 mg PO BEDTIME [facility] Last Admin: 08/11/17 20:11 Dose: 180 mg Ropinirole HCl (Requip) 1 mg PO BEDTIME [facility] Last Admin: 08/11/17 20:13 Dose: 1 mg Sodium Chloride (Saline Flush) 10 ml FLUSH ASDIRECTED PRN PRN Reason: Keep Vein Open Last Admin: 08/10/17 16:45 Dose: 10 ml Solifenacin (Vesicare) 5 mg PO DAILY [facility] Last Admin: 08/12/17 09:01 Dose: 5 mg Discontinued Medications Divalproex Sodium (Depakote Er) 1,000 mg PO BEDTIME [facility] Levothyroxine Sodium (Synthroid) 88 mcg PO DAILY [facility] Last Admin: 08/11/17 07:28 Dose: 88 mcg Morphine Sulfate (Ms Contin) 60 mg PO BID [facility] Last Admin: 08/10/17 23:44 Dose: 60 mg Gemfibrozil [Lopid] (600 MgPt Own) 600 mg PO BIDAC [facility] Last Admin: 08/11/17 07:30 Dose: Not Given
[2017-08-12 09:47] VITALS: BP 120/67
== END 2017-08-12 09:40 | disposition home or self-care (01) ==
LOC: FB.MS 14:21
PROVIDERS: ADMIT Family Medicine; ATTEND Family Medicine
DX: E86.0 Dehydration (principal); K52.9 Noninfective gastroenteritis and colitis, unspecified; F17.200 Nicotine dependence, unspecified, uncomplicated; E66.9 Obesity, unspecified; J18.9 Pneumonia, unspecified organism; F41.9 Anxiety disorder, unspecified; F32.9 Major depressive disorder, single episode, unspecified; Z79.899 Other long term (current) drug therapy
CPT/HCPCS: 36415; 80053; 85025; 87040; 87324; 96360; 96361; 96372; A9270; G0378; J1650; J7030; J7050; 36410

== ENCOUNTER 2018-11-13 12:26 | Observation (INO) | payer MEDICARE, MEDICAID ==
[2018-11-13] MEDS ORDERED: Ondansetron 4 MG Tab.DIS PO PRN (12:56)
[2018-11-13] MEDS ORDERED: Sodium Chloride 0.9% 10 ML Syringe FLUSH PRN (12:56)
[2018-11-13] MEDS: Sodium Chloride 0.9% 1,000 ML IV SCH ×3 (13:57→22:12)
--- NOTE | 2018-11-13 14:49 | PCM.HP.2 ---
H&P History of Present Illness - General Date of Service: 11/13/18 Admit Problem/Dx: Admission Diagnosis/Problem Admission Diagnosis/Problem Dehydration Source of Information: Patient History Limitations: Reports: No Limitations - History of Present Illness Initial Comments - Free Text/Narative: This is a 43-year-old female patient with 2 week history of diarrhea. She states she's had 2 UTIs within the last month. Both treated with Cipro. First one was treated at the walk-in clinic at [place] and the last one was treated here. E. coli was the bacteria and sensitivities are not done. She just finished her clindamycin. She has fevers, chills and abdominal cramping. She has a history of chronic abdominal pain but this is different. She has no blood in her stools. She denies nausea, vomiting and she is able to eat and drink. She has nasal congestion, sore throat, cough, dysuria, pyuria, hematuria. The patient states that she does have a history of C. diff. - Related Data Allergies/Adverse Reactions: Allergies Allergy/AdvReac Type Severity Reaction Status Date / Time diazepam Allergy Nausea Verified 05/01/16 17:48 gadopentetate dimeglumine Allergy Shortness Verified 05/01/16 17:48 [From Magnevist] of Breath lorazepam Allergy Numbness Verified 05/01/16 17:48 dye Allergy heart Uncoded 05/01/16 17:48 races, feel like cant breathe IV CONTRAST Allergy Chest Uncoded 05/01/16 17:48 Tightness MRI CONTRAST Allergy Chest Uncoded 05/01/16 17:48 Tightness peppers Allergy Hives Uncoded 05/01/16 17:48 Home Medications: Home Meds Divalproex Sodium [Depakote ER] 1,000 mg PO BEDTIME 05/21/13 [History] rOPINIRole HCl [Requip] 1 mg PO BEDTIME 10/09/14 [History] Cephalexin [Keflex] 250 mg PO BEDTIME 11/25/14 [History] FLUoxetine HCl [Fluoxetine HCl] 20 mg PO DAILY 11/28/15 [History] Levothyroxine Sodium 88 mcg PO DAILY 11/28/15 [History] Mirtazapine [Remeron] 30 mg PO BEDTIME 11/28/15 [History] Dextroamphetamine/Amphetamine [Adderall 20 mg Tablet] 20 mg PO BID@08,12 [History] Gemfibrozil [Lopid] 600 mg PO BIDAC 05/01/16 [History] Propranolol [Inderal LA] 180 mg PO BEDTIME 05/01/16 [History] Dicyclomine [Bentyl] 10 mg PO TIDAC 02/15/17 [History] Furosemide [Lasix] 40 mg PO DAILY 02/15/17 [History] diphenhydrAMINE [Benadryl] 25 mg PO BID 02/15/17 [History] FLUoxetine [PROzac] 10 mg PO DAILY 08/10/17 [History] Modafinil [Provigil] 200 mg PO DAILY 08/10/17 [History] Erenumab-Aooe [Aimovig Autoinjector] 140 mg SQ Q30D 11/13/18 [History] Magnesium Oxide 500 mg PO DAILY 11/13/18 [History] Modafinil 100 mg PO 12 11/13/18 [History] Morphine [MS Contin] 15 mg PO BID 11/13/18 [History] Solifenacin [Vesicare] 5 mg PO DAILY 11/13/18 [History] Zolpidem [Ambien] 7.5 mg PO BEDTIME 11/13/18 [History] Past Medical History HEENT History: Reports: Impaired Vision Cardiovascular History: Reports: High Cholesterol Respiratory History: Reports: Pneumonia, Recurrent Gastrointestinal History: Reports: Cholelithiasis Genitourinary History: Reports: Other (See Below) Other Genitourinary History: bladder botox for leakage, done every 6 months. [employer] History: Reports: Endometriosis, , Other (See Below) Other OB/BYN History: hysterectomy Musculoskeletal History: Reports: Back Pain, Chronic, Fibromyalgia, Other (See Below) Other Musculoskeletal History: multiple sclerosis, degenerative disk disease Neurological History: Reports: Migraines, MS, Vertigo, Other (See Below) Other Neuro History: Botox for migraines Psychiatric History: Reports: Anxiety, Depression, PTSD, Other (See Below) Other Psychiatric History: hyper awareness disorder Endocrine/Metabolic History: Reports: Hypothyroidism, Obesity/BMI 30+ Dermatologic History: Reports: Other (See Below) Other Dermatologic History: pigment discoloration nata. shoulder - Infectious Disease History Infectious Disease History: Reports: Chicken Pox - Past Surgical History HEENT Surgical History: Reports: Tonsillectomy Cardiovascular Surgical History: Reports: None GI Surgical History: Reports: Appendectomy, Cholecystectomy, Colonoscopy, EGD Female Surgical History: Reports: None Musculoskeletal Surgical History: Reports: Carpal Tunnel Social & Family History - Family History Family Medical History: Noncontributory Other Cardiac Family History: father had a triple bypass OBGYN: Reports: - Caffeine Use Caffeine Use: Reports: Soda Other Caffeine Use: 4-5 cans pop per day - Living Situation & Occupation Living situation: Reports: Occupation: Disabled H&P Review of Systems - Review of Systems: Review Of Systems: See Below General: Reports: Fever, Chills, Weakness HEENT: Reports: No Symptoms Pulmonary: Reports: No Symptoms Cardiovascular: Reports: No Symptoms Gastrointestinal: Reports: Abdominal Pain, Diarrhea. Denies: Black Stool, Bloody Stool, Nausea, Vomiting Genitourinary: Reports: No Symptoms Musculoskeletal: Reports: No Symptoms Skin: Reports: No Symptoms Psychiatric: Reports: No Symptoms Neurological: Reports: No Symptoms Hematologic/Lymphatic: Reports: No Symptoms Immunologic: Reports: No Symptoms Exam - Exam Exam: See Below - Vital Signs Vital Signs: Last Vital Signs Temp 97.9 F 11/13/18 12:35 Pulse 74 11/13/18 12:35 Resp 16 11/13/18 12:35 BP 102/55 L 11/13/18 12:35 Pulse Ox 93 L 11/13/18 12:35 - Exam General: Alert, Oriented, Cooperative HEENT: Hearing Intact, Mucosa Moist & Bude, Posterior Pharynx Clear, TMs Clear Neck: Supple, Trachea Midline Lungs: Clear to Auscultation, Normal Respiratory Effort. No: Rales, Rhonchi, Rub Cardiovascular: Regular Rate, Regular Rhythm. No: Systolic Murmur GI/Abdominal Exam: Soft, Non-Tender, No Distention, No Mass, Other (Hyperactive bowel sounds) Back Exam: No: CVA Tenderness (R), CVA Tenderness (L) Extremities: Non-Tender, No Pedal Edema Skin: Warm, Dry, Intact Neurological: Normal Speech, Normal Tone, Other (Walks with a cane) Neuro Extensive - Mental Status: Alert, Oriented x3, Normal Mood/Affect, Normal Cognition, Memory Intact Psychiatric: Alert, Normal Affect, Normal Mood - Patient Data Lab Results Last 24 hrs: Laboratory Results - last 24 hr 09/11/19 09/11/19 09/11/19 Range/Units 13:00 13:08 13:08 WBC 7.9 (4.5-12.0) X10-3/uL RBC 4.16 (3.23-5.20) x10(6)uL Hgb 13.3 (11.5-15.5) g/dL Hct 38.2 (30.0-51.3) % MCV 91.8 (80-96) fL MCH 32.0 (27.7-33.6) pg MCHC 34.9 (32.2-35.4) g/dL RDW 12.3 (11.5-15.5) % Plt Count 221 (125-369) X10(3)uL MPV 9.8 (7.4-10.4) fL Neut % (Auto) 56.0 (46-82) % Lymph % (Auto) 33.5 (13-37) % Tillman % (Auto) 6.7 (4-12) % Eos % (Auto) 3 (1.0-5.0) % Baso % (Auto) 1 (0-2) % Neut # (Auto) 4.5 (1.6-8.3) # Lymph # (Auto) 2.6 (0.6-5.0) # Tillman # (Auto) 0.5 (0.0-1.3) # Eos # (Auto) 0.2 (0.0-0.8) # Baso # (Auto) 0.1 (0.0-0.2) # Sodium 140 (135-145) mmol/L Potassium 4.4 (3.5-5.3) mmol/L Chloride 104 (100-110) mmol/L Carbon Dioxide 30 (21-32) mmol/L BUN 10 (7-18) mg/dL Creatinine 1.0 (0.55-1.02) mg/dL Est Cr Clr Drug Dosing TNP Estimated GFR (MDRD) > 60 (>60) BUN/Creatinine Ratio 10.0 (9-20) Glucose 107 (80-116) mg/dL Calcium 9.1 (8.6-10.2) mg/dL Total Bilirubin 0.5 (0.1-1.3) mg/dL AST 18 (5-25) IU/L ALT 34 D (12-36) U/L Alkaline Phosphatase 91 (56-112) IU/L Total Protein 7.6 (6.0-8.0) g/dL Albumin 3.7 (3.5-5.2) g/dL Globulin 3.9 g/dL Albumin/Globulin Ratio 1.0 Urine Color Yellow (YELLOW) Urine Appearance Cloudy (CLEAR) Urine pH 5.0 (5.0-6.5) Ur Specific [place] 1.025 (1.010-1.025) Urine Protein Negative (NEGATIVE) mg/dL Urine Glucose (UA) 50 H (NORMAL) mg/dL Urine Ketones 15 H (NEGATIVE) mg/dL Urine Occult Blood Negative (NEGATIVE) Urine Nitrite Negative (NEGATIVE) Urine Bilirubin Small H (NEGATIVE) Urine Urobilinogen Normal (NEGATIVE) mg/dL Ur Leukocyte Esterase Small H (NEGATIVE) Urine RBC 0-5 (0-5) Urine WBC 5-10 H (0-5) Ur Squamous Epith Cells Many H (NS,R,O) Urine Bacteria Moderate H (NS) Urine Mucus Many H (NS) Result Diagrams: 11/13/18 13:08 11/13/18 13:08 - Problem List (1) Dehydration SNOMED Code(s): 25931337 ICD Code: E86.0 - DEHYDRATION Status: Acute Current Visit: No (2) Diarrhea SNOMED Code(s): 71434536 ICD Code: R19.7 - DIARRHEA, UNSPECIFIED Status: Acute Current Visit: No Problem List Initiated/Reviewed/Updated: Yes Orders Last 24hrs: Active Orders 24 hr Category Date Time Status Patient Status [ADT] Routine ADT 11/13/18 12:56 Active Height and Weight [RC] DAILY Care 11/13/18 12:56 Active Intake and Output [RC] QSHIFT Care 11/13/18 12:57 Active Oxygen Therapy [RC] PRN Care 11/13/18 12:56 Active Up ad Marybel [RC] ASDIRECTED Care 11/13/18 12:56 Active VTE/DVT Education [RC] Per Unit Routine Care 11/13/18 12:56 Active Vital Signs [RC] Q4H Care 11/13/18 12:56 Active Regular Diet [DIET] Diet 11/13/18 Dinner Active Enoxaparin [Lovenox] Med 11/13/18 13:00 Active 40 mg SUBCUT Q24H Ondansetron [Zofran ODT] Med 11/13/18 12:56 Active 4 mg PO Q4H PRN Sodium Chloride 0.9% [Normal Saline] 1,000 ml Med 11/13/18 13:00 Active IV ASDIRECTED Sodium Chloride 0.9% [Saline Flush] Med 11/13/18 12:56 Active 10 ml FLUSH ASDIRECTED PRN Vancomycin [Vancocin 125 MG/5 ML Soln] Med 11/13/18 13:00 Pending 125 mg PO QID Peripheral IV Insertion Adult [OM.PC] Routine Oth 11/13/18 12:56 Ordered Sequential Compression Device [OM.PC] Per Unit Routine Oth 11/13/18 12:57 Ordered Resuscitation Status Routine Resus Stat 11/13/18 12:56 Ordered Medication Orders Enoxaparin Sodium (Lovenox) 40 mg SUBCUT Q24H ECHO Sodium Chloride (Normal Saline) 1,000 mls @ 250 mls/hr IV ASDIRECTED [facility] Last Admin: 11/13/18 13:57 Dose: 250 mls/hr Ondansetron HCl (Zofran Odt) 4 mg PO Q4H PRN PRN Reason: nausea, able to take PO Sodium Chloride (Saline Flush) 10 ml FLUSH ASDIRECTED PRN PRN Reason: Keep Vein Open Vancomycin HCl (Vancocin 125 Mg/5 Ml Soln) 125 mg PO QID [facility] Assessment/Plan Comment:: 1. Admit for observation with fluid resuscitation 2. Full code. 3. Lovenox and SCD 4. Restart regular medications per 5. Check C. diff. 6. Up ad marybel. and she may shower. 7. UA, chem 12, CBC
[2018-11-13] MEDS: Enoxaparin 40 MG/0.4 ML Syringe SUBCUT SCH (15:16)
[2018-11-13] MEDS ORDERED: ERENUMAB AOOE 140 MG SQ SCH (16:30)
[2018-11-13] MEDS: DICYCLOMINE 10 MG PO SCH (17:31)
[2018-11-13] MEDS: GEMFIBROZIL 600 MG PO SCH (17:32)
[2018-11-13] MEDS: Vancomycin 125 MG/5 ML ML Oral Solution PO SCH ×2 (17:32→20:20)
[2018-11-13] MEDS: DIVALPROEX SODIUM 500 MG PO SCH (20:04)
[2018-11-13] MEDS: PROPRANOLOL 60 MG PO SCH (20:04)
[2018-11-13] MEDS: Mirtazapine 30 MG Tab *PTOM PO SCH (20:05)
[2018-11-13] MEDS: rOPINIRole 1 MG Tab *PTOM PO SCH (20:06)
[2018-11-13] MEDS: diphenhydrAMINE 25 MG Cap PO SCH (20:08)
[2018-11-13] MEDS: Zolpidem 5 MG Tab PO SCH (20:17)
[2018-11-13] MEDS: Morphine 15 MG Tab.ER PO SCH (20:18)
[2018-11-14] MEDS: Sodium Chloride 0.9% 1,000 ML IV SCH ×2 (06:30→14:50)
[2018-11-14] MEDS: Levothyroxine 88 MCG Tab *PTOM PO SCH (06:32)
[2018-11-14] MEDS: DICYCLOMINE 10 MG PO SCH ×3 (06:32→16:43)
[2018-11-14] MEDS: GEMFIBROZIL 600 MG PO SCH ×2 (06:33→16:43)
--- NOTE | 2018-11-14 08:25 | PCM.PN ---
- General Info Date of Service: 11/14/18 Admission Dx/Problem (Free Text): Patient states that she had a diarrhea stool after she ate last night. So some abdominal cramping, fevers and chills. She also states she has some nausea when she eats. - Patient Data Vitals - Most Recent: Last Vital Signs Temp 97.8 F 11/14/18 06:25 Pulse 64 11/14/18 06:25 Resp 18 11/14/18 06:25 BP 91/55 L 11/14/18 06:25 Pulse Ox 96 11/14/18 06:25 Weight - Most Recent: 209 lb 6.4 oz I&O - Last 24 Hours: Intake & Output 11/13/18 11/14/18 11/14/18 22:59 06:59 14:59 Intake Total 240 Output Total 800 Balance 240 -800 Lab Results Last 24 Hours: Laboratory Results - last 24 hr 11/13/18 11/13/18 11/13/18 Range/Units 13:00 13:08 13:08 WBC 7.9 (4.5-12.0) X10-3/uL RBC 4.16 (3.23-5.20) x10(6)uL Hgb 13.3 (11.5-15.5) g/dL Hct 38.2 (30.0-51.3) % MCV 91.8 (80-96) fL MCH 32.0 (27.7-33.6) pg MCHC 34.9 (32.2-35.4) g/dL RDW 12.3 (11.5-15.5) % Plt Count 221 (125-369) X10(3)uL MPV 9.8 (7.4-10.4) fL Neut % (Auto) 56.0 (46-82) % Lymph % (Auto) 33.5 (13-37) % [place] % (Auto) 6.7 (4-12) % Eos % (Auto) 3 (1.0-5.0) % Baso % (Auto) 1 (0-2) % Neut # (Auto) 4.5 (1.6-8.3) # Lymph # (Auto) 2.6 (0.6-5.0) # [place] # (Auto) 0.5 (0.0-1.3) # Eos # (Auto) 0.2 (0.0-0.8) # Baso # (Auto) 0.1 (0.0-0.2) # Sodium 140 (135-145) mmol/L Potassium 4.4 (3.5-5.3) mmol/L Chloride 104 (100-110) mmol/L Carbon Dioxide 30 (21-32) mmol/L BUN 10 (7-18) mg/dL Creatinine 1.0 (0.55-1.02) mg/dL Est Cr Clr Drug Dosing TNP Estimated GFR (MDRD) > 60 (>60) BUN/Creatinine Ratio 10.0 (9-20) Glucose 107 (80-116) mg/dL Calcium 9.1 (8.6-10.2) mg/dL Total Bilirubin 0.5 (0.1-1.3) mg/dL AST 18 (5-25) IU/L ALT 34 D (12-36) U/L Alkaline Phosphatase 91 (56-112) IU/L Total Protein 7.6 (6.0-8.0) g/dL Albumin 3.7 (3.5-5.2) g/dL Globulin 3.9 g/dL Albumin/Globulin Ratio 1.0 Urine Color Cancelled Urine Appearance Cancelled Urine pH Cancelled Ur Specific [place] Cancelled Urine Protein Cancelled Urine Glucose (UA) Cancelled Urine Ketones Cancelled Urine Occult Blood Cancelled Urine Nitrite Cancelled Urine Bilirubin Cancelled Urine Urobilinogen Cancelled Ur Leukocyte Esterase Cancelled Urine RBC Cancelled Urine WBC Cancelled Ur Epithelial Cells Cancelled Ur Squamous Epith Cells Cancelled Ur Renal Epithelial Cell Cancelled Calcium Oxalate Crystal Cancelled Uric Acid Crystals Cancelled Triple Phos Crystals Cancelled Other Crystals Cancelled Amorphous Sediment Cancelled Urine Bacteria Cancelled Hyaline Casts Cancelled Fine Granular Casts Cancelled Coarse Granular Casts Cancelled Waxy Casts Cancelled RBC Casts Cancelled WBC Casts Cancelled Urine Mucus Cancelled Urine Trichomonas Cancelled Urine Yeast Cancelled Urine Sperm Cancelled Ur Oval Fat Bodies Cancelled Urinalysis Comment Cancelled 11/13/18 Range/Units 16:20 WBC (4.5-12.0) X10-3/uL RBC (3.23-5.20) x10(6)uL Hgb (11.5-15.5) g/dL Hct (30.0-51.3) % MCV (80-96) fL MCH (27.7-33.6) pg MCHC (32.2-35.4) g/dL RDW (11.5-15.5) % Plt Count (125-369) X10(3)uL MPV (7.4-10.4) fL Neut % (Auto) (46-82) % Lymph % (Auto) (13-37) % [place] % (Auto) (4-12) % Eos % (Auto) (1.0-5.0) % Baso % (Auto) (0-2) % Neut # (Auto) (1.6-8.3) # Lymph # (Auto) (0.6-5.0) # [place] # (Auto) (0.0-1.3) # Eos # (Auto) (0.0-0.8) # Baso # (Auto) (0.0-0.2) # Sodium (135-145) mmol/L Potassium (3.5-5.3) mmol/L Chloride (100-110) mmol/L Carbon Dioxide (21-32) mmol/L BUN (7-18) mg/dL Creatinine (0.55-1.02) mg/dL Est Cr Clr Drug Dosing Estimated GFR (MDRD) (>60) BUN/Creatinine Ratio (9-20) Glucose (80-116) mg/dL Calcium (8.6-10.2) mg/dL Total Bilirubin (0.1-1.3) mg/dL AST (5-25) IU/L ALT (12-36) U/L Alkaline Phosphatase (56-112) IU/L Total Protein (6.0-8.0) g/dL Albumin (3.5-5.2) g/dL Globulin g/dL Albumin/Globulin Ratio Urine Color Yellow Urine Appearance Clear Urine pH 5.0 Ur Specific [place] 1.025 Urine Protein Negative Urine Glucose (UA) 250 H Urine Ketones 15 H Urine Occult Blood Negative Urine Nitrite Negative Urine Bilirubin Small H Urine Urobilinogen Normal Ur Leukocyte Esterase Negative Urine RBC 0-5 Urine WBC 0-5 Ur Epithelial Cells Ur Squamous Epith Cells Occasional Ur Renal Epithelial Cell Calcium Oxalate Crystal Uric Acid Crystals Triple Phos Crystals Other Crystals Amorphous Sediment Urine Bacteria Rare H Hyaline Casts Fine Granular Casts Coarse Granular Casts Waxy Casts RBC Casts WBC Casts Urine Mucus Moderate H Urine Trichomonas Urine Yeast Urine Sperm Ur Oval Fat Bodies Urinalysis Comment Med Orders - Current: Current Medications Dicyclomine HCl (Bentyl) 10 mg PO TIDAC [facility] Last Admin: 11/14/18 06:32 Dose: 10 mg Diphenhydramine HCl (Benadryl) 25 mg PO BID [facility] Last Admin: 11/13/18 20:08 Dose: 25 mg Divalproex Sodium (Depakote Er) 1,000 mg PO BEDTIME [facility] Last Admin: 11/13/18 20:04 Dose: 1,000 mg Enoxaparin Sodium (Lovenox) 40 mg SUBCUT Q24H [facility] Last Admin: 11/13/18 15:16 Dose: 40 mg Fluoxetine HCl (Prozac) 10 mg PO DAILY [facility] Fluoxetine HCl (Prozac) 20 mg PO DAILY [facility] Gemfibrozil (Lopid) 600 mg PO BIDAC [facility] Last Admin: 11/14/18 06:33 Dose: 600 mg Sodium Chloride (Normal Saline) 1,000 mls @ 125 mls/hr IV ASDIRECTED [facility] Last Admin: 11/14/18 06:30 Dose: 125 mls/hr Levothyroxine Sodium (Synthroid) 88 mcg PO DAILY@0600 [facility] Last Admin: 11/14/18 06:32 Dose: 88 mcg Mirtazapine (Remeron) 30 mg PO BEDTIME [facility] Last Admin: 11/13/18 20:05 Dose: 30 mg Modafinil (Provigil) 100 mg PO 12 [facility] Modafinil (Provigil) 200 mg PO DAILY [facility] Morphine Sulfate (Ms Contin) 15 mg PO BID [facility] Last Admin: 11/13/18 20:18 Dose: 15 mg Non-Formulary Medication (Dextroamphetamine/Amphetamine [Adderall 20 Mg Tablet] ) 20 mg PO BID@08,12 [facility] Non-Formulary Medication (Erenumab-Aooe [Aimovig Autoinjector]) 140 mg SQ Q30D [facility] (Magnesium Oxide [ Magnesium Oxide] 500 Mg) *Ptom 500 mg PO DAILY [facility] Ondansetron HCl (Zofran Odt) 4 mg PO Q4H PRN PRN Reason: nausea, able to take PO Propranolol HCl (Inderal La) 180 mg PO BEDTIME [facility] Last Admin: 11/13/18 20:04 Dose: 180 mg Ropinirole HCl (Requip) 1 mg PO BEDTIME [facility] Last Admin: 11/13/18 20:06 Dose: 1 mg Sodium Chloride (Saline Flush) 10 ml FLUSH ASDIRECTED PRN PRN Reason: Keep Vein Open Solifenacin (Vesicare) 5 mg PO DAILY [facility] Vancomycin HCl (Vancocin 125 Mg/5 Ml Soln) 125 mg PO QID [facility] Last Admin: 11/13/18 20:20 Dose: 125 mg Zolpidem Tartrate (Ambien) 7.5 mg PO BEDTIME [facility] Last Admin: 11/13/18 20:17 Dose: 7.5 mg - Exam General: Alert, Oriented, Cooperative Lungs: Normal Respiratory Effort GI/Abdominal Exam: Soft, Other (Mildly hyperactive bowel sounds and diffusely mildly tender without rebound or guarding) - Problem List & Annotations (1) Dehydration SNOMED Code(s): 02718644 Code(s): E86.0 - DEHYDRATION Status: Acute Current Visit: No (2) Diarrhea SNOMED Code(s): 77540547 Code(s): R19.7 - DIARRHEA, UNSPECIFIED Status: Acute Current Visit: No - Problem List Review Problem List Initiated/Reviewed/Updated: Yes - My Orders Last 24 Hours: My Active Orders 11/13/18 12:56 Patient Status [ADT] Routine Height and Weight [RC] 06 Oxygen Therapy [RC] PRN Up ad Marybel [RC] ASDIRECTED VTE/DVT Education [RC] Per Unit Routine Vital Signs [RC] 08,12,16,20,00,04 Ondansetron [Zofran ODT] 4 mg PO Q4H PRN Sodium Chloride 0.9% [Saline Flush] 10 ml FLUSH ASDIRECTED PRN Peripheral IV Insertion Adult [OM.PC] Routine Resuscitation Status Routine 11/13/18 12:57 Intake and Output [RC] 06,14,22 Sequential Compression Device [OM.PC] Per Unit Routine 11/13/18 13:00 Enoxaparin [Lovenox] 40 mg SUBCUT Q24H Sodium Chloride 0.9% [Normal Saline] 1,000 ml IV ASDIRECTED 11/13/18 16:30 Erenumab-Aooe [Aimovig Autoinjector] 140 mg SQ Q30D 11/13/18 16:35 CDIFF TOXIN A+B GROUP [OP] Stat 11/13/18 16:36 Isolation [COMM] Stat 11/13/18 17:00 Vancomycin [Vancocin 125 MG/5 ML Soln] 125 mg PO QID 11/13/18 17:30 Dicyclomine [Bentyl] 10 mg PO TIDAC Gemfibrozil [Lopid] 600 mg PO BIDAC 11/13/18 21:00 Divalproex Sodium [Depakote ER] 1,000 mg PO BEDTIME Mirtazapine [Remeron] 30 mg PO BEDTIME Morphine [MS Contin] 15 mg PO BID Propranolol [Inderal LA] 180 mg PO BEDTIME Zolpidem [Ambien] 7.5 mg PO BEDTIME diphenhydrAMINE [Benadryl] 25 mg PO BID rOPINIRole [Requip] 1 mg PO BEDTIME 11/13/18 Dinner Regular Diet [DIET] 11/14/18 06:00 Levothyroxine [Synthroid] 88 mcg PO DAILY@0611/14/18 08:00 Dextroamphetamine/Amphetamine [Adderall 20 mg Tablet] 20 mg PO BID@11/14/18 09:00 FLUoxetine [PROzac] 10 mg PO DAILY FLUoxetine [PROzac] 20 mg PO DAILY Magnesium Oxide [Magnesium Oxide] 500 mg PO DAILY Modafinil [Provigil] 200 mg PO DAILY Solifenacin [Vesicare] 5 mg PO DAILY 11/14/18 12:00 Modafinil [Provigil] 100 mg PO 12 - Plan Plan:: 1. Waiting for C. difficile test which is post be this afternoon. 2. Continue vancomycin 3. Continue IV fluids. 4. I encouraged the patient to be up in a chair and moving around in her room.
[2018-11-14] MEDS: FLUoxetine 10 MG Cap *PTOM PO SCH (08:47)
[2018-11-14] MEDS: MAGNESIUM OXIDE 500 MG PO SCH (08:47)
[2018-11-14] MEDS: MODAFINIL 200 MG PO SCH ×2 (08:48→11:38)
[2018-11-14] MEDS: SOLIFENACIN 5 MG PO SCH (08:49)
[2018-11-14] MEDS: diphenhydrAMINE 25 MG Cap PO SCH ×2 (08:52→20:41)
[2018-11-14] MEDS: FLUoxetine 20 MG Cap *PTOM PO SCH (08:52)
[2018-11-14] MEDS: Vancomycin 125 MG/5 ML ML Oral Solution PO SCH ×3 (09:02→16:43)
[2018-11-14] MEDS: Morphine 15 MG Tab.ER PO SCH ×2 (09:02→20:47)
[2018-11-14] MEDS: Enoxaparin 40 MG/0.4 ML Syringe SUBCUT SCH (13:29)
[2018-11-14] MEDS: rOPINIRole 1 MG Tab *PTOM PO SCH (20:41)
[2018-11-14] MEDS: DIVALPROEX SODIUM 500 MG PO SCH (20:41)
[2018-11-14] MEDS: Mirtazapine 30 MG Tab *PTOM PO SCH (20:41)
[2018-11-14] MEDS: PROPRANOLOL 60 MG PO SCH (20:41)
[2018-11-14] MEDS: Zolpidem 5 MG Tab PO SCH (20:47)
[2018-11-15] MEDS: Levothyroxine 88 MCG Tab *PTOM PO SCH (06:03)
[2018-11-15] MEDS: GEMFIBROZIL 600 MG PO SCH ×2 (06:04→08:05)
[2018-11-15] MEDS: DICYCLOMINE 10 MG PO SCH ×3 (06:04→13:27)
[2018-11-15] MEDS: diphenhydrAMINE 25 MG Cap PO SCH (08:05)
[2018-11-15] MEDS: MAGNESIUM OXIDE 500 MG PO SCH (08:06)
[2018-11-15] MEDS: FLUoxetine 20 MG Cap *PTOM PO SCH (08:07)
[2018-11-15] MEDS: MODAFINIL 200 MG PO SCH ×2 (08:07→13:27)
[2018-11-15] MEDS: FLUoxetine 10 MG Cap *PTOM PO SCH (08:08)
[2018-11-15] MEDS: SOLIFENACIN 5 MG PO SCH (08:08)
[2018-11-15] MEDS: Morphine 15 MG Tab.ER PO SCH (08:14)
[2018-11-15] MEDS: Enoxaparin 40 MG/0.4 ML Syringe SUBCUT SCH (13:27)
[2018-11-15 13:34] VITALS: BP 103/62; PULSE 61
--- NOTE | 2018-11-15 15:42 | PCM.DCSUM1 ---
Discharge Summary - Hospital Course HPI Initial Comments: This is a 43-year-old female patient with 2 week history of diarrhea. She states she's had 2 UTIs within the last month. Both treated with Cipro. First one was treated at the walk-in clinic at [place] and the last one was treated here. E. coli was the bacteria and sensitivities are not done. She just finished her clindamycin. She has fevers, chills and abdominal cramping. She has a history of chronic abdominal pain but this is different. She has no blood in her stools. She denies nausea, vomiting and she is able to eat and drink. She has nasal congestion, sore throat, cough, dysuria, pyuria, hematuria. The patient states that she does have a history of C. diff and irritable bowel syndrome with mixed diarrhea/constipation. Was started on Magnesium to help prevent her migraines a few months ago until she could be started on Aimovig shots and also receive Botox injections. She states she eats pasta, toast, apples and bananas, has problem with the textures of lettuce, other green vegetables. Diagnosis: Stroke: No - Discharge Data Discharge Date: 11/15/18 Discharge Disposition: Home, Self-Care 01 Condition: Good - Referral to Home Health Primary Care Physician: Esau Moore MD - Discharge Diagnosis/Problem(s) (1) Colonic dysmotility SNOMED Code(s): 46363390, 148001553 ICD Code: K59.9 - FUNCTIONAL INTESTINAL DISORDER, UNSPECIFIED Status: Acute Current Visit: No (2) Dehydration SNOMED Code(s): 41066383 ICD Code: E86.0 - DEHYDRATION Status: Resolved Priority: Medium Current Visit: No Onset Date: 04/27/14 Problem Details: IV fluids (3) Diarrhea SNOMED Code(s): 34481470 ICD Code: R19.7 - DIARRHEA, UNSPECIFIED Status: Acute Current Visit: No (4) Gastroesophageal reflux disease SNOMED Code(s): 837331204 ICD Code: K21.9 - GASTRO-ESOPHAGEAL REFLUX DISEASE WITHOUT ESOPHAGITIS Status: Acute Current Visit: No (5) Spastic colon SNOMED Code(s): 54631455 ICD Code: K58.9 - IRRITABLE BOWEL SYNDROME WITHOUT DIARRHEA Status: Acute Current Visit: No Qualifiers: Irritable bowel syndrome type: with both diarrhea and constipation Qualified Code(s): K58.2 - Mixed irritable bowel syndrome - Patient Summary/Data Hospital Course: Patient was tested for C-difficile due to her history and presentation, it came back negative. Was rehydrated with IV fluids. Had Zofran that helped with nausea. No infectious cause. Does have history of IBS with diarrhea/ constipation. Discontinued her magnesium, changed diet to BRAT. Her stools decreased in frequency down to 2 on day of discharge. She has Imodium and Zofran at home. Likelihood of infectious cause with two rounds of ciprofloxacin is unlikely, no travel history outside [place] or recent camping. - Patient Instructions Diet, Other: BRAT diet, avoid caffeine, milk and juice. Activity: As Tolerated Driving: May Drive Today Showering/Bathing: May Shower Notify Provider of: Fever, Increased Pain, Nausea and/or Vomiting Other/Special Instructions: Follow up with Christine Coronado APRN gastroenterology [facility] as scheduled. Follow up with Dr Moore in 1 week. - Discharge Plan *PRESCRIPTION DRUG MONITORING PROGRAM REVIEWED*: No *COPY OF PRESCRIPTION DRUG MONITORING REPORT IN PATIENT ALEXANDER: Not Applicable Prescriptions/Med Rec: Loperamide [Imodium AD] 2 mg PO ASDIRECTED PRN 1 Days #1 tablet PRN Reason: Diarrhea Ondansetron [Zofran ODT] 4 mg PO Q4H PRN 2 Days #10 tab.dis PRN Reason: nausea, able to take PO Home Medications: Home Meds Divalproex Sodium [Depakote ER] 1,000 mg PO BEDTIME 05/21/13 [History] rOPINIRole HCl [Requip] 1 mg PO BEDTIME 10/09/14 [History] FLUoxetine HCl [Fluoxetine HCl] 20 mg PO DAILY 11/28/15 [History] Levothyroxine Sodium 88 mcg PO DAILY 11/28/15 [History] Mirtazapine [Remeron] 30 mg PO BEDTIME 11/28/15 [History] Dextroamphetamine/Amphetamine [Adderall 20 mg Tablet] 20 mg PO BID@08,12 [History] Gemfibrozil [Lopid] 600 mg PO BIDAC 05/01/16 [History] Propranolol [Inderal LA] 180 mg PO BEDTIME 05/01/16 [History] Dicyclomine [Bentyl] 10 mg PO TIDAC 02/15/17 [History] Furosemide [Lasix] 40 mg PO DAILY 02/15/17 [History] diphenhydrAMINE [Benadryl] 25 mg PO BID 02/15/17 [History] FLUoxetine [PROzac] 10 mg PO DAILY 08/10/17 [History] Modafinil [Provigil] 200 mg PO DAILY 08/10/17 [History] Erenumab-Aooe [Aimovig Autoinjector] 140 mg SQ Q30D 11/13/18 [History] Modafinil 100 mg PO 12 11/13/18 [History] Morphine [MS Contin] 15 mg PO BID 11/13/18 [History] Solifenacin [Vesicare] 5 mg PO DAILY 11/13/18 [History] Zolpidem [Ambien] 7.5 mg PO BEDTIME 11/13/18 [History] Loperamide [Imodium AD] 2 mg PO ASDIRECTED PRN 1 Days #1 tablet 11/15/18 [Rx] Ondansetron [Zofran ODT] 4 mg PO Q4H PRN 2 Days #10 tab.dis 11/15/18 [Rx] Patient Handouts: Food Choices to Help Relieve Diarrhea, Pediatric, Nausea and Vomiting, Adult, [id number], Fall Prevention in Hospitals, Adult, Venous Thromboembolism Prevention, Irritable Bowel Syndrome, Adult - Discharge Summary/Plan Comment DC Time >30 min.: No - General Info Date of Service: 11/15/18 Subjective Update: had no bowel movements overnight, had 2 loose/pudding like stools today. Nausea improved with Zofran. She has 10 tablets at home along with Loperamide. She sees gastroenterology for irritable bowel with mixed constipation/diarrhea. Has appt set up with Christine Coronado APRN at [facility] Nov 25. Was started on magnesium for migraines a few months ago. - Patient Data Vitals - Most Recent: Last Vital Signs Temp 36.6 C 11/15/18 12:00 Pulse 61 11/15/18 12:00 Resp 20 11/15/18 12:00 BP 103/62 11/15/18 12:00 Pulse Ox 94 L 11/15/18 12:00 Weight - Most Recent: 94.489 kg SHORTY Results - Last 24 hrs: Microbiology 11/13/18 16:20 Clostridium difficile Toxin A & B - Final Stool / Feces NEGATIVE CDIFF TOXIN REFERENCE RANGE: NEGATIVE Med Orders - Current: Current Medications Dicyclomine HCl (Bentyl) 10 mg PO TIDAC [facility] Last Admin: 11/15/18 13:27 Dose: 10 mg Diphenhydramine HCl (Benadryl) 25 mg PO BID [facility] Last Admin: 11/15/18 08:05 Dose: 25 mg Divalproex Sodium (Depakote Er) 1,000 mg PO BEDTIME [facility] Last Admin: 11/14/18 20:41 Dose: 1,000 mg Enoxaparin Sodium (Lovenox) 40 mg SUBCUT Q24H [facility] Last Admin: 11/15/18 13:27 Dose: 40 mg Fluoxetine HCl (Prozac) 10 mg PO DAILY [facility] Last Admin: 11/15/18 08:08 Dose: 10 mg Fluoxetine HCl (Prozac) 20 mg PO DAILY [facility] Last Admin: 11/15/18 08:07 Dose: 20 mg Gemfibrozil (Lopid) 600 mg PO BIDAC [facility] Last Admin: 11/15/18 08:05 Dose: 600 mg Levothyroxine Sodium (Synthroid) 88 mcg PO DAILY@0600 [facility] Last Admin: 11/15/18 06:03 Dose: 88 mcg Mirtazapine (Remeron) 30 mg PO BEDTIME [facility] Last Admin: 11/14/18 20:41 Dose: 30 mg Modafinil (Provigil) 100 mg PO 12 [facility] Last Admin: 11/15/18 13:27 Dose: 100 mg Modafinil (Provigil) 200 mg PO DAILY [facility] Last Admin: 11/15/18 08:07 Dose: 200 mg Morphine Sulfate (Ms Contin) 15 mg PO BID [facility] Last Admin: 11/15/18 08:14 Dose: 15 mg Non-Formulary Medication (Dextroamphetamine/Amphetamine [Adderall 20 Mg Tablet] ) 20 mg PO BID@08,12 [facility] Non-Formulary Medication (Erenumab-Aooe [Aimovig Autoinjector]) 140 mg SQ Q30D [facility] Ondansetron HCl (Zofran Odt) 4 mg PO Q4H PRN PRN Reason: nausea, able to take PO Last Admin: 11/15/18 10:34 Dose: 4 mg Propranolol HCl (Inderal La) 180 mg PO BEDTIME [facility] Last Admin: 11/14/18 20:41 Dose: 180 mg Ropinirole HCl (Requip) 1 mg PO BEDTIME [facility] Last Admin: 11/14/18 20:41 Dose: 1 mg Sodium Chloride (Saline Flush) 10 ml FLUSH ASDIRECTED PRN PRN Reason: Keep Vein Open Solifenacin (Vesicare) 5 mg PO DAILY [facility] Last Admin: 11/15/18 08:08 Dose: 5 mg Zolpidem Tartrate (Ambien) 7.5 mg PO BEDTIME [facility] Last Admin: 11/14/18 20:47 Dose: 7.5 mg Discontinued Medications Sodium Chloride (Normal Saline) 1,000 mls @ 125 mls/hr IV ASDIRECTED [facility] Last Admin: 11/14/18 14:50 Dose: 125 mls/hr (Magnesium Oxide [ Magnesium Oxide] 500 Mg) *Ptom 500 mg PO DAILY [facility] Last Admin: 11/15/18 08:06 Dose: 500 mg Vancomycin HCl (Vancocin 125 Mg/5 Ml Soln) 125 mg PO QID [facility] Last Admin: 11/14/18 16:43 Dose: 125 mg - Exam General: Reports: Alert, Oriented, Cooperative Lungs: Reports: Clear to Auscultation, Normal Respiratory Effort Cardiovascular: Reports: Regular Rate, Regular Rhythm GI/Abdominal Exam: Normal Bowel Sounds, Soft, Non-Tender, No Distention Extremities: No Pedal Edema Skin: Reports: Warm, Dry, Intact
== END 2018-11-15 16:50 | disposition home or self-care (01) ==
LOC: FB.MS 12:26
PROVIDERS: ADMIT Family Medicine; ATTEND Family Medicine
DX: E86.0 Dehydration (principal); K59.9 Functional intestinal disorder, unspecified; R19.7 Diarrhea, unspecified; K21.9 Gastro-esophageal reflux disease without esophagitis; K58.2 Mixed irritable bowel syndrome; E78.00 Pure hypercholesterolemia, unspecified; G43.909 Migraine, unspecified, not intractable, without status migrainosus; F41.9 Anxiety disorder, unspecified; F32.9 Major depressive disorder, single episode, unspecified; E03.9 Hypothyroidism, unspecified; E66.9 Obesity, unspecified; Z79.899 Other long term (current) drug therapy; Z88.8 Allergy status to other drugs, medicaments and biological substances; Z91.041 Radiographic dye allergy status; Z91.018 Allergy to other foods; Z68.35 Body mass index [BMI] 35.0-35.9, adult
CPT/HCPCS: 36415; 80053; 81001; 85025; 87324; 96360; 96361; 96372; A9270; G0378; G0379; J1650; J7030

== ENCOUNTER 2019-04-09 09:30 | Observation (INO) | payer MEDICARE, MEDICAID, OTHER ==
[2019-04-09] MEDS ORDERED: Ondansetron 4 MG Tab.DIS PO PRN (09:49)
[2019-04-09] MEDS ORDERED: Acetaminophen 325 MG Tab PO PRN (09:49)
[2019-04-09] MEDS ORDERED: Sodium Chloride 0.9% 1,000 ML IV SCH (10:00)
[2019-04-09] MEDS ORDERED: ELETRIPTAN HBR 40 MG PO PRN (10:20)
[2019-04-09] MEDS ORDERED: RIZATRIPTAN 10 MG PO PRN (10:20)
[2019-04-09] MEDS ORDERED: Non-Formulary Medication 1 Each (Melatonin [Melatonin] 5 MG) PO PRN (10:20)
[2019-04-09] MEDS ORDERED: Loperamide 2 MG Cap PO PRN (10:20)
[2019-04-09] MEDS ORDERED: ERENUMAB AOOE 140 MG SQ SCH (10:30)
[2019-04-09] MEDS ORDERED: Aluminum Hydroxide/Magnesium Hydroxide Susp 30 ML Cup PO PRN (10:32)
[2019-04-09] MEDS ORDERED: Adenosine 6 MG/2 ML SDV IVPUSH ONE (10:32)
[2019-04-09] MEDS: DICYCLOMINE 10 MG PO SCH ×2 (12:37→18:04)
--- NOTE | 2019-04-09 13:54 | HP ---
ADMISSION DATE: 04/09/2019 CHIEF COMPLAINT: Nausea and vomiting. HISTORY OF PRESENT ILLNESS: Marianela is a 43-year-old woman from [place], [place] with a history of chronic pain syndrome due to fibromyalgia, chronic migraine disorder, and narcotics on long-term narcotic use. She was seen in the clinic yesterday by Dr. Moore and given IV fluid for nausea, vomiting, and dehydration. This continued overnight. She says the last she held down was crackers 2 nights ago. She was seen in the clinic today and sent over to [place] for IV rehydration. The patient denies diarrhea. She has been taking her oral Zofran at home without improvement. She states that her son, who is an 8th grader, goes to school in [place], and there are apparently many kids out of school with a stomach type flu. Marianela is not having high fever, rigors, or hematemesis. PAST MEDICAL HISTORY: Long-term chronic pain disorder with fibromyalgia, chronic migraines. She was also diagnosed with MS in 2009 and took Copaxone along with another medication. Briefly, she is not on any current MS medications and her progression has been halted. She has chronic bladder spasms and gets Botox injections from Urology every 6 months. She has a history of smoking, is down 2 cigarettes per day. She has a history of heavy alcohol use, but has not drank for the past 7 years. She is status post T and A, appendectomy, cholecystectomy, multiple laparoscopic surgeries, and eventually a YEN-BSO for endometriosis. She has had removal of a left wrist cyst. 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 She is 0. MEDICATIONS: Extensive. See list accompanying her admission. ALLERGIES: Diazepam, gadopentetate, lorazepam, IV contrast. Listed peppers caused hives. HABITS: Two cigarettes per day, no alcohol for 7 years, 2 to 3 servings of caffeinated soda per day. FAMILY AND SOCIAL HISTORY: The patient's father is aged 60; he has epilepsy and has had a coronary artery bypass of 3 vessels. Mother is aged 61 and has ulcerative colitis. 1 sister is aged 43 and has Crohn disease. Another sister is healthy. The patient lives in [place] with her grandmother and her 13-year- old foster son. She is unemployed. REVIEW OF SYSTEMS: GENERAL: No seizure or syncope. HEENT: No recent changes in hearing or vision. No sore throat or URI. RESPIRATORY: No cough or purulent sputum. No chest pain or palpitations. GASTROINTESTINAL: She has mild epigastric discomfort, but no true epigastric pain. No diarrhea. She has had bright red stool with painful bowel movements for the past couple of weeks and she has an appointment to get this checked out. GENITOURINARY: No current UTI symptoms. MUSCULOSKELETAL: No joint inflammation, swelling, or skin rash. She was just started on dicloxacillin for an ingrown toenail on the right great toe. PHYSICAL EXAMINATION: GENERAL: She is alert and comfortable. VITAL SIGNS: Blood pressure 88/56, pulse 76 and regular, temperature 96.3, weight 207 pounds. SKIN: Anicteric, warm, dry. There is a very small area of redness at the medial corner of her right great toenail and a couple of faded tattoos are present. HEENT: Show clear TMs. Pupils are equal and reactive. Oropharynx is clear. Mouth dry. LUNGS: Clear to the bases. HEART: Regular. No murmur or gallop heard. ABDOMEN: Normal bowel sounds. Soft. She has slight tenderness to palpation in the epigastric area. No mass, guarding, or rebound tenderness. EXTREMITIES: Warm, well perfused. Good pulses. No edema. LABORATORY DATA: Pending. ASSESSMENT: A 43-year-old woman with: 1. Nausea, vomiting, weakness, and dehydration, question gastroenteritis. 2. Multiple medications that could contribute to her nausea. 3. Chronic pain syndrome on long-term narcotic. 4. Sleepiness on both Adderall and modafinil. 5. Chronic migraine disorder. 6. Chronic bladder spasms on intermittent Botox injections. 7. History of recurrent urinary tract infections. 8. Ingrown toenail. 9. Hyperlipidemia. 10.Hypothyroidism. 11.Chronic venous insufficiency with ankle edema. PLAN: We will treat her with IV fluids. Anticipate an overnight hospital stay followed by discharge to home. We will hold the medications that could be contributing to her nausea at this time. /[id number] EMY/KEVIN
[2019-04-09] MEDS: GEMFIBROZIL 600 MG PO SCH (18:03)
[2019-04-09] MEDS: Ondansetron 4 MG Tab.DIS PO PRN (18:03)
[2019-04-09] MEDS ORDERED: DIVALPROEX SODIUM 500 MG PO SCH (21:00)
[2019-04-09] MEDS ORDERED: rOPINIRole 1 MG Tab *PTOM PO SCH (21:00)
[2019-04-09] MEDS ORDERED: PROPRANOLOL 60 MG PO SCH (21:00)
[2019-04-09] MEDS ORDERED: Zolpidem 5 MG Tab PO SCH (21:00)
[2019-04-09] MEDS ORDERED: Mirtazapine 30 MG Tab *PTOM PO SCH (21:00)
[2019-04-09] MEDS: diphenhydrAMINE 25 MG Cap PO SCH (21:13)
[2019-04-09] MEDS: Morphine 15 MG Tab.ER PO SCH (21:14)
[2019-04-10] MEDS: GEMFIBROZIL 600 MG PO SCH (06:44)
[2019-04-10] MEDS: DICYCLOMINE 10 MG PO SCH (06:44)
[2019-04-10] MEDS: Ondansetron 4 MG Tab.DIS PO PRN (06:52)
[2019-04-10 07:48] VITALS: BP 97/57; PULSE 58
[2019-04-10] MEDS ORDERED: Non-Formulary Medication 1 Each (Esomeprazole [Nexium] 40 MG) PO SCH (09:00)
[2019-04-10] MEDS ORDERED: FLUoxetine 20 MG Cap *PTOM PO SCH (09:00)
[2019-04-10] MEDS ORDERED: Non-Formulary Medication 1 Each (Fluoxetine [Prozac] 30 MG) PO SCH (09:00)
[2019-04-10] MEDS ORDERED: Levothyroxine 88 MCG Tab *PTOM PO SCH (09:00)
[2019-04-10] MEDS ORDERED: SOLIFENACIN 5 MG PO SCH (09:00)
[2019-04-10] MEDS ORDERED: FLUoxetine 10 MG Cap *PTOM PO SCH (09:00)
[2019-04-10] MEDS: diphenhydrAMINE 25 MG Cap PO SCH (09:08)
[2019-04-10] MEDS: Morphine 15 MG Tab.ER PO SCH (09:13)
--- NOTE | 2019-04-11 05:11 | DISCH ---
DISCHARGE DATE: 04/10/2019 PRIMARY FINAL DIAGNOSES: Nausea and vomiting with dehydration. OPERATIONS: None. COMPLICATIONS: None. SUMMARY: Marianela is a 43-year-old woman with history of chronic pain syndrome, migraine disorder, hypothyroidism, depression, and polypharmacy. She was admitted after three days of nausea and vomiting. She had received a liter of IV fluid in the clinic the day prior to admission and was sent over from the clinic for admission. On admission, labs were drawn. She was started on IV normal saline and provided with anti-nausea medications. Her outpatient medications were continued. Laboratory results came back normal, and by the next morning, she was feeling improved. She had no nausea or vomiting since she was hospitalized. She is discharged home in good condition. She is asked to see Dr. Moore within 2 weeks in his office to discuss tapering some of the multiple medications she is on. MEDICATIONS ON DISCHARGE: See list. /[id number] TERESA
== END 2019-04-10 10:03 | disposition home or self-care (01) ==
LOC: FB.MS 09:30
PROVIDERS: ADMIT Family Medicine; ATTEND Family Medicine
DX: R11.2 Nausea with vomiting, unspecified (principal); E86.0 Dehydration; G43.909 Migraine, unspecified, not intractable, without status migrainosus; E03.9 Hypothyroidism, unspecified; F32.9 Major depressive disorder, single episode, unspecified; G89.4 Chronic pain syndrome; G43.709 Chronic migraine without aura, not intractable, without status migrainosus; F17.210 Nicotine dependence, cigarettes, uncomplicated; N32.89 Other specified disorders of bladder; L60.0 Ingrowing nail; E78.5 Hyperlipidemia, unspecified; I87.2 Venous insufficiency (chronic) (peripheral); Z79.891 Long term (current) use of opiate analgesic; Z88.5 Allergy status to narcotic agent; Z91.041 Radiographic dye allergy status; Z91.018 Allergy to other foods; Z83.79 Family history of other diseases of the digestive system
CPT/HCPCS: 36415; 80053; 81001; 83735; 85025; A9270; G0378; G0379; J7030; 99217; 99218

== ENCOUNTER 2024-12-22 08:11 | Day surgery (SDC) | payer MEDICAID, MEDICARE ==
[2024-12-22] MEDS ORDERED: Propofol 200 MG/20 ML SDV IV ONE (08:12)
[2024-12-22] MEDS ORDERED: Sodium Chloride 0.9% 10 ML Syringe FLUSH PRN (08:30)
[2024-12-22] MEDS: Lactated Ringers 1,000 ML IV SCH (09:45)
[2024-12-22 10:59] VITALS: BP 107/69; PULSE 70
== END 2024-12-22 11:05 | disposition home or self-care (01) ==
LOC: FB.SDS 08:11
PROVIDERS: ATTEND Surgery
DX: Z12.11 Encounter for screening for malignant neoplasm of colon (principal); F41.9 Anxiety disorder, unspecified; F32.A Depression, unspecified; K21.9 Gastro-esophageal reflux disease without esophagitis; E78.5 Hyperlipidemia, unspecified; E03.9 Hypothyroidism, unspecified; Z87.891 Personal history of nicotine dependence; Z79.899 Other long term (current) drug therapy
CPT/HCPCS: 00811; A9270; G0121; J2003; J2704; J7120